=== PATIENT | female | born 1940 | race Caucasian/White ===

== ENCOUNTER 2016-11-16 12:11 | Inpatient (IN) | payer MEDICARE, OTHER ==
[~2016-11-16] VITALS: Ht 160 cm; Wt 71.3 kg
[~2016-11-16 12:11] MED LIST: AMLO-147 PO; CYCL-319 PO; IBAN150T7 PO; MELO-110 PO; NAPR-688 PO; PARO-37 PO
[2016-11-16] MEDS ORDERED: ONDANSETRON 4 MG INJ IV STA (12:16)
[2016-11-16] MEDS ORDERED: morphine 4 MG/ML VIAL IV STA (12:16)
[2016-11-16] MEDS ORDERED: SODIUM CHLORIDE 0.9% 1L BAG IV* STA (12:27)
[2016-11-16 12:33] LABS: BASOPHILS % 0.2 % (0.0-2.0); EOSINOPHILS % 0.2 % (0.0-7.0); HEMATOCRIT 41.7 % (37.0-47.0); HEMOGLOBIN 13.8 g/dl (12.0-16.0); LYMPHOCYTES # 1.6 10^3/ul (0.8-2.9); LYMPHOCYTES % 10.7 % (15.0-51.0); MEAN CORPUSCULAR HEMOGLOBIN 28.4 pg (29.0-33.0); MEAN CORPUSCULAR HGB CONC 33.2 g/dl (32.0-37.0); MEAN CORPUSCULAR VOLUME 85.5 fl (82.0-101.0); MEAN PLATELET VOLUME 7.9 fl (7.4-10.4); MONOCYTE # 0.1 10^3/ul (0.3-0.9); NEUTROPHIL # 12.7 10^3/ul (1.6-7.5); NEUTROPHILS % 87.9 % (39.0-77.0); PLATELET COUNT 207 10^3/UL (140-440); RED BLOOD COUNT 4.88 10^6/ul (4.20-5.40); UNCORRECTED WBC 14.5 10^3/ul (4.8-10.8); WHITE BLOOD COUNT 14.5 10^3/ul (4.8-10.8)
[2016-11-16 12:36] LABS: CONDITION 1
[2016-11-16 12:43] LABS: ALBUMIN 4.3 g/dl (3.3-4.9); INR 0.97; PROTIME 12.9 Sec (12.2-14.2)
[2016-11-16 12:44] LABS: CHLORIDE 105 mmol/L (97-110); PARTIAL THROMBOPLASTIN TIME 26.4 Sec (25.0-35.0); POTASSIUM 3.7 mmol/L (3.5-5.1); SODIUM 146 mmol/L (135-144)
[2016-11-16 12:46] LABS: ALKALINE PHOSPHATASE 77 IU/L (42-121); ANION GAP 17 (8-16); ASPARTATE AMINO TRANSFERASE 117 IU/L (15-46); BILIRUBIN,INDIRECT 0.9 mg/dl (0-1.1); BILIRUBIN,TOTAL 0.9 mg/dl (0.2-1.3); CARBON DIOXIDE 28 mmol/L (21-31); CREATININE 0.54 mg/dl (0.44-1.00); TOTAL PROTEIN 7.5 g/dl (6.1-8.1)
[2016-11-16 12:47] LABS: ALANINE AMINOTRANSFERASE 87 IU/L (13-69); ALBUMIN/GLOBULIN RATIO 1.34; BLOOD UREA NITROGEN 12 mg/dl (7-20); CALCIUM 8.9 mg/dl (8.4-10.2); GLUCOSE 80 mg/dl (70-220)
--- NOTE | 2016-11-16 12:56 | RADRPT ---
PROCEDURE: Abdominal Ultrasound (right upper quadrant). CLINICAL INDICATION: Abdominal pain TECHNIQUE: Multiple real-time longitudinal and transverse images of the right upper quadrant of th e abdomen were acquired utilizing a curved array transducer. Images were reviewed on a high-resoluti on PACS workstation. COMPARISON: None FINDINGS: The liver demonstrates increased echogenicity consistent with fatty infiltration. The liver is mild ly enlarged. The portal vein is patent, and flow direction is normal. No focal masses are identified . There is no evidence of intra or extrahepatic ductal dilatation. The common bile duct measures 4 .8 mm in diameter. No gallstones or gallbladder wall thickening is seen. The visualized portions of the pancreas are unremarkable with obscuration of the tail of the pancrea s. No free fluid is identified. There is no evidence of right hydronephrosis or renal calcification. The right kidney measures 10.3 cm in length. The visualized portions of the aorta and inferior vena cava are within normal limits. IMPRESSION: 1. Enlarged, fatty liver. 2. Otherwise unremarkable right upper quadrant ultrasound. RPTAT: KK .Lacho Blevins MD, MD Date Time Electronically viewed and signed by .Lacho Blevins MD, MD on 11/16/2016 12:56 .B/
[2016-11-16 13:03] LABS: TROPONIN-I < 0.012 ng/ml (0.00-0.12)
--- NOTE | 2016-11-16 13:10 | RADRPT ---
PROCEDURE: Chest Radiograph. CLINICAL INDICATION: Sepsis TECHNIQUE: Single frontal chest radiograph. COMPARISON: Chest radiograph 05/03/2016 FINDINGS: The cardiomediastinal silhouette is within normal limits. Lung volumes are decreased there is mild bibasilar atelectasis. No infiltrate or effusion is seen. The bones are intact. IMPRESSION: 1. Low lung volumes with mild bibasilar atelectasis. RPTAT: KK .Lacho Blevins MD, MD Date Time Electronically viewed and signed by .Lacho Blevins MD, on 11/16/2016 13:10 .B/
[2016-11-16] MEDS ORDERED: CEFTRIAXONE 1 GM/50 ML (PMX) 50 ML IVPB ONE (13:30)
--- NOTE | 2016-11-16 13:51 | RADRPT ---
PROCEDURE: CT Abdomen and Pelvis without contrast. CLINICAL INDICATION: Abdominal pain. TECHNIQUE: Multiple contiguous axial CT images of the abdomen and pelvis were obtained without the administration of intravenous contrast. Coronal and sagittal reconstructions were also performed. CTDIvol (mGy): 12.97; Total Exam DLP (mGy-cm): 777.95. COMPARISON: Gallbladder ultrasound 11/16/2016. FINDINGS: Limited imaging of the lower thorax demonstrates a 6 mm noncalcified subpleural nodule of the right middle lobe. Scattered basilar atelectatic changes are present. The heart is enlarged. The liver and spleen are homogeneous in density. The liver is diffusely low in attenuation compatibl e with fatty infiltration. The gallbladder is not distended. There are no visible calcified gallst ones. There is no gallbladder wall thickening or pericholecystic fluid. There is no intrahepatic b iliary duct dilatation. The common bile duct is dilated measuring approximately 10-11 mm in greates t diameter. There is no pancreatic duct dilatation. The pancreas is homogeneous in density. Mild peripancreatic inflammatory edema is observed and suggest sequelae of acute pancreatitis. The kidneys are symmetric in size. There is no hydronephrosis or abnormal perinephric inflammation. There are no nephroureteral stones. The abdominal aorta is normal in caliber. Atherosclerotic calcification is present. There is no per iaortic / retroperitoneal lymphadenopathy. The stomach and small intestines are unremarkable. Diverticulosis is present. The appendix is not visualized. There are no focal inflammatory changes of the mesentery. There is no mesenteric lymph adenopathy. There is no ascites. The bladder, uterus and adnexa are unremarkable. There is no free pelvic fluid. There is no pelvic sidewall or inguinal lymphadenopathy. Bony mineralization is decreased. The density of the L1 vertebral body is approximately 94 HU. Deg enerative changes of the lumbar spine are present. Subcutaneous soft tissues are unremarkable. IMPRESSION: Mild diffuse peripancreatic inflammatory edema suggesting sequelae of acute pancreatitis. Common bile duct dilatation. Consider further characterization with MRCP to assess for biliary ston es. Fatty infiltration of the liver. Diverticulosis. No evidence of acute diverticulitis. Small pulmonary nodule of the right middle lobe. Recommend follow up in 6-12 months. RPTAT: HLST .Yarelis Santiago MD, MD Date Time Electronically viewed and signed by .Yarelis Santiago MD, on 11/16/2016 13:51 .T/
[2016-11-16 14:12] LABS: ADD UMIC NO; URINE BILIRUBIN (Dip) NEGATIVE (NEGATIVE); URINE BLOOD (Dip) NEGATIVE (NEGATIVE); URINE COLOR LT. YELLOW (YELLOW); URINE GLUCOSE (Dip) NEGATIVE (NEGATIVE); URINE KETONES (Dip) NEGATIVE (NEGATIVE); URINE LEUKOCYTE ESTERASE (Dip) NEGATIVE (NEGATIVE); URINE NITRITE (Dip) NEGATIVE (NEGATIVE); URINE TOTAL PROTEIN (Dip) NEGATIVE (NEGATIVE); URINE UROBILINOGEN (Dip) 1.0 E.U./dL (0.1-1.0)
[2016-11-16] MEDS ORDERED: SOD CHLORIDE 0.9% 1,000 ML IV SCH (14:57)
[2016-11-16] MEDS ORDERED: ONDANSETRON 4 MG INJ IV PRN ×2 (15:00→20:30)
[2016-11-16] MEDS ORDERED: ACETAMINOPHEN 325 MG TAB PO PRN (15:00)
[2016-11-16] MEDS ORDERED: metroNIDAZOLE 500 MG/NS (PMX) 100 ML IVPB ONE (15:00)
--- NOTE | 2016-11-16 15:00 | ERA ---
ER Documentation Chief Complaint Date/Time DATE: 11/16/16 TIME: 14:59 Chief Complaint BIB RA FOR EVAL OF ABD HPI This is a 76-year-old female who presents to the emergency room after being brought in by ambulance for evaluation of abdominal pain. This patient localizes the abdominal pain to the epigastric region, states is achy pain is been present for 1 days duration. She states that she has felt nauseous and has vomited once. She denies any vomiting associated with this. She does state that she has had a fever as well. ROS All systems reviewed and are negative except as per history of present illness. Medications Home Meds Active Scripts Cyclobenzaprine Hcl* (Cyclobenzaprine Hcl*) 10 Mg Tablet, 10 MG PO TID, #20 TAB Prov:CARLITO BECKER. 05/04/16 Meloxicam* (Mobic*) 15 Mg Tablet, 15 MG PO DAILY, #30 TAB Prov:CARLITO BECKER. 05/04/16 Reported Medications Naproxen* (Naproxen*) 500 Mg Tablet, 500 MG PO BID Y for PAIN, TAB 05/04/16 Ibandronate Sodium* (Boniva*) 150 Mg Tablet, 150 MG PO ONCE, TAB 05/04/16 Paroxetine Hcl* (Paroxetine*) 20 Mg Tablet, 20 MG PO DAILY, TAB 05/04/16 Amlodipine Besylate* (Amlodipine Besylate*) 10 Mg Tablet, 10 MG PO DAILY, #30 TAB 05/04/16 Allergies Allergies: Coded Allergies: No Known Allergy (Unverified , 05/04/16) PMhx/Soc History of Surgery: Yes (appendectomy) Anesthesia Reaction: No Hx Neurological Disorder: No Hx Respiratory Disorders: No Hx Cardiac Disorders: Yes (HTN) Hx Psychiatric Problems: No Hx Miscellaneous Medical Probl: Yes (arthritis) Hx Alcohol Use: No Hx Substance Use: No Hx Tobacco Use: No Smoking Status: Never smoker Physical Exam Vitals Vital Signs Date Time Temp Pulse Resp B/P Pulse Ox O2 Delivery O2 Flow Rate FiO2 11/16/16 13:59 100.9 98 20 141/61 100 Room Air 11/16/16 12:21 101.2 95 19 139/64 97 Physical Exam INITIAL VITAL SIGNS: Reviewed by me GENERAL: The patient is well developed, appears to be in mild pain HEENT: Pupils equal, round, and reactive to light. EOMI. There is no scleral icterus. NECK: C-spine is soft and supple, there is no meningismus. There is no cervical lymphadenopathy. LUNGS: Clear to auscultation bilaterally. There are no rales, wheezes or rhonchi. HEART: Tachycardic no murmurs, clicks, rubs or gallops. ABDOMEN: Positive Smith sign, there are bowel sounds in all four quadrants. No rebound or guarding. EXTREMITIES: There is no peripheral cyanosis or edema. No focal swelling or erythema. NEUROLOGICAL: The patient moves all four extremities with 5/5 strength. Cranial nerves II - XII are intact. Normal gait. Alert and oriented SKIN: There is no apparent rash or petechiae. HEME/LYMPHATIC: There is no evidence of excessive bruising or lymphedema. PSYCHIATRIC: The patient does not appear anxious or depressed. Result Diagram: 11/16/16 1215 11/16/16 1215 Results 24 hrs Laboratory Tests Test 11/16/16 12:15 11/16/16 13:49 11/16/16 14:30 Activated Partial Thromboplast Time 26.4Sec Alanine Aminotransferase (ALT/SGPT) 87IU/L Albumin 4.3g/dl Albumin/Globulin Ratio 1.34 Alkaline Phosphatase 77IU/L Anion Gap 17 Aspartate Amino Transf (AST/SGOT) 117IU/L Basophils # 0.010^3/ul Basophils % 0.2% Blood Morphology Comment Blood Urea Nitrogen 12mg/dl Calcium Level 8.9mg/dl Carbon Dioxide Level 28mmol/L Chloride Level 105mmol/L Creatinine 0.54mg/dl Direct Bilirubin 0.00mg/dl Eosinophils # 0.010^3/ul Eosinophils % 0.2% Globulin 3.20g/dl Glucose Level 80mg/dl Hematocrit 41.7% Hemoglobin 13.8g/dl INR International Normalized Ratio 0.97 Indirect Bilirubin 0.9mg/dl Lactic Acid Level 1.8mmol/L 1.1mmol/L Lipase 9783U/L Lymphocytes # 1.610^3/ul Lymphocytes % 10.7% Mean Corpuscular Hemoglobin 28.4pg Mean Corpuscular Hemoglobin Concent 33.2g/dl Mean Corpuscular Volume 85.5fl Mean Platelet Volume 7.9fl Monocytes # 0.110^3/ul Monocytes % 1.0% Neutrophils # 12.710^3/ul Neutrophils % 87.9% Nucleated Red Blood Cells # 0.010^3/ul Nucleated Red Blood Cells % 0.0/100WBC Platelet Count 14841^3/UL Potassium Level 3.7mmol/L Prothrombin Time 12.9Sec Prothrombin Time Ratio 1.0 Red Blood Count 4.8810^6/ul Red Cell Distribution Width 14.0% Sodium Level 146mmol/L Total Bilirubin 0.9mg/dl Total Protein 7.5g/dl Troponin I < 0.012ng/ml White Blood Count 14.510^3/ul Urine Bilirubin NEGATIVE Urine Clarity CLEAR Urine Color LT. YELLOW Urine Glucose NEGATIVE% Urine Hemoglobin NEGATIVE Urine Ketones NEGATIVE Urine Leukocyte Esterase NEGATIVE Urine Nitrite NEGATIVE Urine Specific [place] 1.020 Urine Total Protein NEGATIVE Urine Urobilinogen 1.0 E.U./dL Urine pH 5.5 Current Medications Medications (Trade) Dose Ordered Sig/César Route PRN Reason Start Time Stop Time Status Last Admin Dose Admin Morphine Sulfate (morphine) 4 mg ONCE STAT IV 11/16/16 12:16 11/16/16 12:17 DC 11/16/16 12:36 Ondansetron HCl (Zofran Inj) 4 mg ONCE STAT IV 11/16/16 12:16 11/16/16 12:17 DC 11/16/16 12:36 Sodium Chloride 2020 ml 2,020 ml BOLUS OVER 2 HOURS STAT IV* 11/16/16 12:27 11/16/16 12:28 DC 11/16/16 12:36 Ceftriaxone Sodium 50 ml @ 100 mls/hr ONCE ONCE IVPB 11/16/16 13:30 11/16/16 13:59 DC 11/16/16 13:54 Metronidazole 100 ml @ 100 mls/hr ONCE ONCE IVPB 11/16/16 15:00 11/16/16 15:59 Sodium Chloride (NS) 1,000 ml @ 80 mls/hr [id number] IV 11/16/16 14:57 11/17/16 03:26 Ondansetron HCl (Zofran Inj) 4 mg ER BRIDGE PRN IV NAUSEA AND/OR VOMITING 11/16/16 15:00 11/17/16 14:59 Acetaminophen (Tylenol Tab) 650 mg ER BRIDGE PRN PO MILD PAIN/FEVER 11/16/16 15:00 11/17/16 14:59 Amlodipine Besylate (Norvasc) 10 mg DAILY PO 11/17/16 09:00 Paroxetine HCl 20 mg 20 mg DAILY PO 11/17/16 09:00 UNV Sodium Chloride (NS) 1,000 ml @ 250 mls/hr Q4H IV 11/16/16 15:07 IV Flush (NS 3 ml) 3 ml PER PROTOCOL IV 11/16/16 15:30 Acetaminophen (Tylenol Tab) 650 mg Q6H PRN PO PAIN LEVEL 1-3 OR FEVER 11/16/16 15:30 Acetaminophen (Tylenol Supp) 650 mg Q6H PRN [place] PAIN LEVEL 1-3 OR FEVER 11/16/16 15:30 Acetaminophen/ Hydrocodone Bitart ([place] (5/325)) 1 tab Q6H PRN PO MODERATE PAIN LEVEL 4-6 11/16/16 15:30 Acetaminophen/ Hydrocodone Bitart ([place] (5/325)) 2 tab Q6H PRN PO SEVERE PAIN LEVEL 7-10 11/16/16 15:30 Morphine Sulfate (morphine) 2 mg Q4H PRN IV SEVERE PAIN LEVEL 7-10 11/16/16 15:30 Hydromorphone HCl (Dilaudid) 0.5 mg Q4H PRN IV SEVERE PAIN LEVEL 7-10 11/16/16 15:30 Docusate Sodium (Colace) 100 mg Q12H PRN PO CONSTIPATION 11/16/16 15:30 Magnesium Hydroxide (Milk Of Mag) 30 ml DAILY PRN PO CONSTIPATION 11/16/16 15:30 Bisacodyl (Dulcolax Supp) 10 mg DAILY PRN [place] CONSTIPATION 11/16/16 15:30 Pantoprazole (Protonix Iv) 40 mg DAILY@06 IV 11/17/16 06:00 Procedures/MDM EKG: Rate/Rhythm: [Normal Sinus Rhythm] QRS, ST, T-waves: [No changes consistent w/ acute ischemia] Impression: [No evidence of ischemia or arrhythmia] Ultrasound gallbladder: 1. Enlarged, fatty liver. 2. Otherwise unremarkable right upper quadrant ultrasound. Chest X-ray 1V Interpreted by me: Soft Tissue: No acute abnormalities Bones: No acute abnormalities Mediastinum/Cardiac Silhouette/Lungs: [No acute abnormalities] CT abdomen pelvis without: Mild diffuse peripancreatic inflammatory edema suggesting sequelae of acute pancreatitis. Common bile duct dilatation. Consider further characterization with MRCP to assess for biliary stones. Fatty infiltration of the liver. Diverticulosis. No evidence of acute diverticulitis. Small pulmonary nodule of the right middle lobe. Recommend follow up in 6-12 months. This is a 76-year-old female presents to the emergency room for evaluation of abdominal pain. She did have a positive Smith sign on my examination. She was also febrile and tachycardic. A septic workup was initiated on this patient. She was found to have acute pancreatitis, no signs of cholecystitis. She was given 30 cc/kg of IV normal saline, and was given Rocephin and Flagyl here in the emergency room. This patient will be admitted for acute pancreatitis with sepsis. [facility]. No need for pressors as her mean arterial pressures greater than 65. Critical Care: Excluding all billable procedures Time: 38 minutes Treatments/Evaluations: Close monitoring and treatment of unstable vital signs, cardiorespiratory, and neurologic status, while maintaining tight balance of fluid, respiratory, and cardiac interventions. Departure Diagnosis: Primary Impression: Sepsis Additional Impression: Acute pancreatitis Condition: CHANDLER Jasso DO Nov 16, 2016 15:00
[2016-11-16] MEDS ORDERED: NACL 0.9% 3 ML SYG IV SCH (15:30)
[2016-11-16] MEDS ORDERED: HYDROCODONE/APAP (5/325) TAB PO PRN (15:30)
[2016-11-16] MEDS ORDERED: DOCUSATE SODIUM 100 MG CAP PO PRN (15:30)
[2016-11-16] MEDS ORDERED: MAGNESIUM HYDROXIDE 30ML CUP PO PRN (15:30)
[2016-11-16] MEDS ORDERED: ACETAMINOPHEN 650 MG SUPP PR PRN (15:30)
[2016-11-16] MEDS ORDERED: HYDROmorphONE 1 MG/ML SYG IV PRN (15:30)
[2016-11-16] MEDS ORDERED: BISACODYL 10 MG SUPP PR PRN (15:30)
[2016-11-16] MEDS: morphine 2 MG INJ IV PRN (16:11)
[2016-11-16 16:36] VITALS: TEMP 100.4
--- NOTE | 2016-11-16 16:57 | HP ---
DATE OF ADMISSION: 11/16/2016 CHIEF COMPLAINT: Abdominal pain. HISTORY OF PRESENT ILLNESS: This is a 76-year-old female with past medical history of osteoarthriti s, as well as sciatica and hypertension, who did come to [facility] due to reports of abdominal pain for 1 day duration. According to the patient, she was in her normal state of hea lth until this morning when she started to have pain roughly after 10:30 in the morning. She did re port having some associated yellowish emesis x3 at home and 2 reports of emesis in the ER and nonblo linnea. She also was noted with temperature as high as 101.2 that did downward trend to 100.9 without any use of antipyretics. She did have blood work drawn that did show her to have some leukocytosis with a white count at 14.5, likely reactive to pancreatitis. Of note, [place] 9783 with liver enzymes of AST at 117 and ALT at 87. She did have further radiographic imagi ng of her gallbladder with ultrasound that did show enlarged fatty liver, but otherwise unremarkabl e right carotid ultrasound. Her CT scan of her abdomen and pelvis, however, did show mild diffuse p eripancreatic inflammatory edema suggestive of pancreatitis as well as common bile duct dilation, al though again in the scan. there were no real identified gallstones seen. There was, however, common bile duct dilated measuring 10 to 11 mm in greatest diameter. Currently, the patient reports havin g epigastric pain. She did initially report that she had some radiation to her chest. However, thi s has resolved at this time. She denies any other sick contacts or any episodes of fever prior to t his admission. We will evaluate her for the aforementioned issues. MEDICAL AND SURGICAL HISTORY: 1. Arthritis. 2. Hypertension. 3. Appendectomy. SOCIAL HISTORY: Patient denies any cigarette smoking, alcohol consumption or illicit drug use. FAMILY HISTORY: Noncontributory. ALLERGIES: NO KNOWN ALLERGIES. REVIEW OF SYSTEMS: A 12-point review of systems obtained and entirely negative except that mentione d in history of present illness. HOME MEDICATIONS 1. Cyclobenzaprine 10 mg p.o. t.i.d. 2. Amlodipine 10 mg p.o. daily. 3. Meloxicam 15 mg p.o. daily. 4. Naprosyn 500 mg p.o. b.i.d. 5. Fluoxetine 20 mg p.o. daily. 6. Boniva 150 mg p.o. PHYSICAL EXAMINATION: VITAL SIGNS: Temperature is 100.9, pulse is 98, respiratory rate 20, blood pressure 141/61, pulse o ximetry 100% on room air. GENERAL: This is a 76-year-old female, appears stated age with slight discomfort secondary to abdom inal pain. EYES: Pupils equal, round and reactive to light. Anicteric sclerae. NECK: Supple, nontender, no JVD. CARDIOVASCULAR: S1, S2 auscultated, regular rate. PULMONARY: Clear to auscultation bilaterally, no wheezes or rhonchi. ABDOMEN: Tender upon palpation, more on upper abdominal quadrants. Bowel sounds active. EXTREMITIES: No pedal edema in bilateral extremities. SKIN: Warm, dry, and intact. NEUROLOGIC: Alert, oriented x3. LABORATORIES:: Sodium 146, potassium 2.7, BUN is 12, creatinine 0.54. AST at 117 and ALT at 87, a nd lipase at 97____. WBC 14.5, hemoglobin 13.8, hematocrit is 41.7 and platelets are 207. IMAGING: Gallbladder ultrasound done on 11/16/2016 showed enlarged fatty liver, but otherwise unrem arkable right upper quadrant abdominal ultrasound. DIAGNOSTICS: Chest x-ray done on 11/16/2016 showed low lung volumes with mild bibasilar atelectasis . 1. Abdominal pelvic CT scan done 11/16/2016 did show mild diffuse peripancreatic inflammatory edema suggestive of sequelae of acute pancreatitis. It also showed common bile duct dilation with fatty liver and diverticulosis but no evidence of diverticulitis, as well as a small pulmonary nodule in t he right middle lung lobe and common bile duct measuring approximately 10 to [address] IMPRESSION AND PLAN: 1. Pancreatitis. The patient noted with elevated liver enzymes. Suspect etiology for possible sto ne in CBD. Will get MRCP for further delineation. 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 Wi ll start on IV hydration and analgesics. Will withhold from antibiotics for now. 2. CBD dilation. Etiology unclear at this time. Patient with no noted gallstones on CT scan imagi ng, as well as ultrasound imaging. We will get MRCP for further delineation. 3. History of essential hypertension. We will continue patient on her amlodipine. 4. Diverticulosis without diverticulitis. Patient to be given IV hydration for now. Will keep n.p .o. 5. History of arthritis. We will provide with analgesics as needed. 6. Leukocytosis, likely secondary to #1. Fever downward trending. We will provide with antipyreti cs as needed. 7. Deep venous thrombosis prophylaxis: SCDs. 8. GI prophylaxis: PPI. ADMISSION PROCESS TIME: 40 minutes. Discussed plan of care with Dr. Ashford. Dictated By: NEO FUENTES BUILDING PRINCIPAL for CHANDLER BENSON DO RR/NTS Conf#: [id number] DID#: [id number]
[2016-11-16 18:05] VITALS: BP 146/64; PULSE 90; RESP 16; Ht 160 cm; Wt 71.3 kg
[2016-11-16] MEDS: SOD CHLORIDE 0.9% 1,000 ML IV SCH ×3 (18:14→23:44)
--- NOTE | 2016-11-16 20:07 | CONS ---
Date/Time of Note Date/Time of Note DATE: 11/16/16 TIME: 20:05 Assessment/Plan Assessment/Plan Additional Assessment/Plan Abdominal pain/nausea/vomiting, evaluate for choledocholithiasis versus acute cholelithiasis * MRCP * Check triglycerides * Trend lipase, amylase, direct and total bilirubin * IVF hydration * Pain management and nausea control * N.p.o. * Consider ERCP if clinically indicated, patient and family advised of risks, benefits, and alternatives to procedure and are agreeable to proceed * May need surgery consult * Further recommendations depend on clinical course Fatty liver * Recommend weight loss Transaminitis * Likely secondary to above * Acute hepatitis panel to rule out other etiology * Monitor LFTs Consultation Date/Type/Reason Admit Date/Time Nov 16, 2016 at 14:57 Hx of Present Illness 76-year-old female with PMH of arthritis and hypertension presented to the ED with complaints of chest pain that radiated to epigastrium, nausea, and nonbloody bilious vomiting 1 day. Patient states symptoms presented acutely and were unrelenting. Patient denies diarrhea, melena stools, fever, chills, shortness of breath, syncope, cholecystectomy, travel outside the [place], new medications, and sick contacts. Patient denies previous episode. Presently CT notes common bile duct is dilated measuring approximately 10-11 mm in greatest diameter and fatty liver. Past Medical History Medical History: hypertension, other (Arthritis) Past Surgical History Past Surgical Hx: appendectomy Family History Significant Family History: no pertinent family hx Social History Alcohol Use: occasionally Smoking Status: Never smoker Exam/Review of Systems Vital Signs Vitals Vital Signs Date Time Temp Pulse Resp B/P Pulse Ox O2 Delivery O2 Flow Rate FiO2 11/16/16 18:05 98.3 90 16 146/64 96 Room Air Exam Constitutional: alert, oriented, well developed Psych: nl mood/affect Head: atraumatic Eyes: EOMI ENMT: mucosa pink and moist Respiratory: normal air movement Cardiovascular: regular rate and rhythm Gastrointestinal: soft, tender (Epigastric, right upper quadrant) 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 intact Results Result Diagram: 11/16/16 1215 11/16/16 1215 Results 24 hrs Laboratory Tests Test 11/16/16 12:15 11/16/16 13:49 11/16/16 14:30 11/16/16 18:15 Activated Partial Thromboplast Time 26.4 Alanine Aminotransferase (ALT/SGPT) 87 H Albumin 4.3 Albumin/Globulin Ratio 1.34 Alkaline Phosphatase 77 Anion Gap 17 H Aspartate Amino Transf (AST/SGOT) 117 H Basophils # 0.0 Basophils % 0.2 Blood Morphology Comment Blood Urea Nitrogen 12 Calcium Level 8.9 Carbon Dioxide Level 28 Chloride Level 105 Creatinine 0.54 Direct Bilirubin 0.00 Eosinophils # 0.0 Eosinophils % 0.2 Globulin 3.20 Glucose Level 80 Hematocrit 41.7 Hemoglobin 13.8 INR International Normalized Ratio 0.97 Indirect Bilirubin 0.9 Lactic Acid Level 1.8 1.1 1.8 Lipase 9783 H Lymphocytes # 1.6 Lymphocytes % 10.7 L Mean Corpuscular Hemoglobin 28.4 L Mean Corpuscular Hemoglobin Concent 33.2 Mean Corpuscular Volume 85.5 Mean Platelet Volume 7.9 Monocytes # 0.1 L Monocytes % 1.0 Neutrophils # 12.7 H Neutrophils % 87.9 H Nucleated Red Blood Cells # 0.0 Nucleated Red Blood Cells % 0.0 Platelet Count 207 # Potassium Level 3.7 Prothrombin Time 12.9 Prothrombin Time Ratio 1.0 Red Blood Count 4.88 Red Cell Distribution Width 14.0 Sodium Level 146 H Total Bilirubin 0.9 Total Protein 7.5 Troponin I < 0.012 White Blood Count 14.5 #H Urine Bilirubin NEGATIVE Urine Clarity CLEAR Urine Color LT. YELLOW Urine Glucose NEGATIVE Urine Hemoglobin NEGATIVE Urine Ketones NEGATIVE Urine Leukocyte Esterase NEGATIVE Urine Nitrite NEGATIVE Urine Specific [place] 1.020 Urine Total Protein NEGATIVE Urine Urobilinogen 1.0 E.U./dL Urine pH 5.5 Medications Medications Current Medications Sodium Chloride (NS) 1,000 ml @ 80 mls/hr [id number] IV ; Start 11/16/16 at 14:57; Stop 11/17/16 at 03:26 Amlodipine Besylate (Norvasc) 10 mg DAILY PO ; Start 11/17/16 at 09:00 Paroxetine HCl 20 mg 20 mg DAILY PO ; Start 11/17/16 at 09:00 Sodium Chloride (NS) 1,000 ml @ 250 mls/hr Q4H IV Last administered on t 18:14; Admin Dose 250 MLS/HR; Start 11/16/16 at 15:07 Acetaminophen (Tylenol Tab) 650 mg Q6H PRN PO PAIN LEVEL 1-3 OR FEVER; Start at 15:30 Acetaminophen (Tylenol Supp) 650 mg Q6H PRN [place] PAIN LEVEL 1-3 OR FEVER; Start 11/16/16 at 15:30 Acetaminophen/ Hydrocodone Bitart ([place] (5/325)) 1 tab Q6H PRN PO MODERATE PAIN LEVEL 4-6; Start 11/16/16 at 15:30 Acetaminophen/ Hydrocodone Bitart ([place] (5/325)) 2 tab Q6H PRN PO SEVERE PAIN LEVEL 7-10; Start 11/16/16 at 15:30 Morphine Sulfate (morphine) 2 mg Q4H PRN IV SEVERE PAIN LEVEL 7-10 Last administered on 11/16/16t 16:11; Admin Dose 2 MG; Start 11/16/16 at 15:30 Hydromorphone HCl (Dilaudid) 0.5 mg Q4H PRN IV SEVERE PAIN LEVEL 7-10; Start at 15:30 Docusate Sodium (Colace) 100 mg Q12H PRN PO CONSTIPATION; Start 11/16/16 at 15: 30 Magnesium Hydroxide (Milk Of Mag) 30 ml DAILY PRN PO CONSTIPATION; Start at 15:30 Bisacodyl (Dulcolax Supp) 10 mg DAILY PRN [place] CONSTIPATION; Start 11/16/16 at 15: 30 Pantoprazole (Protonix Iv) 40 mg DAILY@06 IV ; Start 11/17/16 at 06:00 JEROME MARTINES MD Nov 16, 2016 20:07
[2016-11-16 20:33] VITALS: BP 129/60; RESP 20
--- NOTE | 2016-11-16 23:11 | RADRPT ---
PROCEDURE: MRCP. CLINICAL INDICATION: Biliary dilatation. Abdominal pain and vomiting. TECHNIQUE: MRCP was performed. The following sequences were obtained: Three plane gradient echo localizers, coronal gradient echo images, breath hold axial T2-weighted fat saturation images, clyde nal T2-weighted images, axial 3-D LAVA images, axial T2-weighted breath hold fast spin echo images, and 3-D coronal rotating MIP images of the biliary tree. COMPARISON: CT scan of the abdomen and pelvis and right upper quadrant abdomen ultrasound done ear [place] the same day. FINDINGS: The liver is mildly enlarged. There is no focal hepatic lesion. Hepatic signal intensity is consistent with fatty metamorphosis. The spleen is normal in size and homogeneous in signal intensity. There are no gallstones in the gallbladder. The common bile duct is dilated with a diameter of approximately 13 mm. No obstructing lesion is se en. There are no common bile duct stones. The intrahepatic bile ducts are mildly dilated. There is abrupt tapering of the distal common bile duct. In addition, the pancreatic duct is borderline dila anna measuring 3 mm. The pancreas demonstrates no obvious mass. The kidneys are grossly normal. The abdominal aorta is not dilated. IMPRESSION: 1. Mild hepatomegaly. 2. Fatty metamorphosis of the liver. 3. Dilated common bile duct with abrupt tapering distally. This may indicate a stricture which cou ld be benign or malignant. Correlation with ERCP is advised. 4. Borderline dilated pancreatic duct. 5. Otherwise unremarkable study. RPTAT: QQ .Matteo Guevara MD, MD Date Time Electronically viewed and signed by .Matteo Guevara MD, on 11/16/2016 23:11 .R/
[2016-11-17] VITALS (22 sets, daily range): BP systolic 132–177; BP diastolic 60–85; PULSE 63–86; RESP 14–26
[2016-11-17] MEDS: SOD CHLORIDE 0.9% 1,000 ML IV SCH ×4 (03:43→19:07)
[2016-11-17] MEDS: PANTOPRAZOLE 40 MG INJ IV SCH (05:12)
[2016-11-17 06:48] LABS: AMYLASE 780 U/L (11-123)
[2016-11-17] MEDS ORDERED: ONDANSETRON 4 MG INJ ONE (07:00)
[2016-11-17 07:43] LABS: ALBUMIN 3.2 g/dl (3.3-4.9)
[2016-11-17 07:44] LABS: POTASSIUM 3.8 mmol/L (3.5-5.1)
[2016-11-17 07:46] LABS: ALBUMIN/GLOBULIN RATIO 1.14; BILIRUBIN,INDIRECT 0.9 mg/dl (0-1.1); BILIRUBIN,TOTAL 0.9 mg/dl (0.2-1.3); CREATININE 0.48 mg/dl (0.44-1.00)
[2016-11-17 07:47] LABS: CALCIUM 7.8 mg/dl (8.4-10.2); CHOL/HDL RATIO 3.1 RATIO; MAGNESIUM 1.8 mg/dl (1.7-2.5); PHOSPHORUS 3.9 mg/dl (2.5-4.9)
[2016-11-17 07:58] LABS: T3 UPTAKE 39.2 % (23.5-40.5)
[2016-11-17 08:12] LABS: THYROID STIMULATING HORMONE 0.316 MIU/L (0.465-4.680)
[2016-11-17 09:00] LABS: BASOPHILS % 0.3 % (0.0-2.0); EOSINOPHILS % 0.1 % (0.0-7.0); HEMATOCRIT 34.5 % (37.0-47.0); HEMOGLOBIN 11.5 g/dl (12.0-16.0); LYMPHOCYTES # 1.8 10^3/ul (0.8-2.9); LYMPHOCYTES % 14.8 % (15.0-51.0); MEAN CORPUSCULAR HEMOGLOBIN 28.6 pg (29.0-33.0); MEAN CORPUSCULAR HGB CONC 33.4 g/dl (32.0-37.0); MEAN CORPUSCULAR VOLUME 85.8 fl (82.0-101.0); MEAN PLATELET VOLUME 8.9 fl (7.4-10.4); MONOCYTE # 0.7 10^3/ul (0.3-0.9); MONOCYTES % 5.8 % (0.0-11.0); NEUTROPHIL # 9.5 10^3/ul (1.6-7.5); PLATELET COUNT 167 10^3/UL (140-440); RED BLOOD COUNT 4.02 10^6/ul (4.20-5.40); RED CELL DISTRIBUTION WIDTH 14.3 % (11.5-14.5); UNCORRECTED WBC 12.1 10^3/ul (4.8-10.8); WHITE BLOOD COUNT 12.1 10^3/ul (4.8-10.8)
[2016-11-17 09:14] LABS: CONDITION 1
[2016-11-17] MEDS ORDERED: INDOMETHACIN 50 MG SUPP PR ONE (12:00)
[2016-11-17] MEDS: ONDANSETRON 4 MG INJ IV PRN ×2 (12:27→18:03)
--- NOTE | 2016-11-17 15:20 | PN ---
Date/Time of Note Date/Time of Note DATE: 11/17/16 TIME: 15:17 Assessment/Plan VTE Prophylaxis VTE Prophylaxis Intervention: SCD's Lines/Catheters [facility]from [facility] Peripheral IV Assessment/Plan Chief Complaint/Hosp Course Assessment and plan 1. Pancreatitis. The patient noted with elevated liver enzymes. Continue on IV hydration and analgesics. Improving at present. 2. CBD dilation. Patient did have MRCP that did show: Dilated common bile duct with abrupt tapering distally. This may indicate a stricture which could be benign or malignant Embedded Software Test Engineer following. Tentative plan for ERCP 3. History of essential hypertension. We will continue patient on her amlodipine. 4. Diverticulosis without diverticulitis. Patient to be given IV hydration for now. Will keep n.p.o. 5. History of arthritis. We will provide with analgesics as needed. 6. Leukocytosis, likely secondary to #1. Fever downward trending. We will provide with antipyretics as needed. 7. Deep venous thrombosis prophylaxis: SCDs. 8. GI prophylaxis: PPI. Disposition and plan: Patient noted with possible stricture in CBD. Plan for ERCP. Follow up with clinic specialist recommendations. Monitor liver enzymes. Discussed but of care with Problems: Subjective 24 Hr Interval Summary Free Text/Dictation No acute distress noted. Reports less abdominal pain at this time Exam/Review of Systems Vital Signs Vitals Vital Signs Date Time Temp Pulse Resp B/P Pulse Ox O2 Delivery O2 Flow Rate FiO2 11/17/16 07:33 98.0 73 18 138/60 96 11/16/16 18:05 Room Air Intake and Output 11/16/16 11/16/16 11/17/16 15:00 23:00 07:00 Intake Total 2250 ml Balance 2250 ml Exam General: No acute signs or symptoms of distress Eyes: pupils equal round, Anicteric sclera Neck: Supple nontender, no JVD Cardiac: S1, S2 auscultated, regular rhythm and rate Pulmonary: No coarse rhonchi or breathing auscultated GI: Abdomen soft nontender nondistended, bowel sounds active Extremities: No edema bilateral lower extremities Skin: Clean dry and intact Neurologic: Alert to person place and time and situation Results Result Diagram: 11/17/16 0436 11/17/16 0436 Results 24 hrs Laboratory Tests Test 11/16/16 18:15 11/17/16 04:36 Lactic Acid Level 1.8 Alanine Aminotransferase (ALT/SGPT) 78 H Albumin 3.2 #L Albumin/Globulin Ratio 1.14 Alkaline Phosphatase 50 Amylase Level 780 H Anion Gap 17 H Aspartate Amino Transf (AST/SGOT) 56 H Basophils # 0.0 Basophils % 0.3 Blood Morphology Comment Blood Urea Nitrogen 11 Calcium Level 7.8 L Carbon Dioxide Level 25 Chloride Level 108 Cholesterol Level 131 Cholesterol/HDL Ratio 3.1 Creatinine 0.48 Direct Bilirubin 0.00 Eosinophils # 0.0 Eosinophils % 0.1 Free Thyroxine Index 2.55 Globulin 2.80 Glucose Level 88 HDL Cholesterol 41 Hematocrit 34.5 L Hemoglobin 11.5 L Hemoglobin A1c 5.7 Hepatitis A Antibody Total POSITIVE H Hepatitis B Surface Antigen NEGATIVE Hepatitis C Antibody NEGATIVE Indirect Bilirubin 0.9 LDL Cholesterol, Calculated 82 Lipase 2275 H Lymphocytes # 1.8 Lymphocytes % 14.8 L Magnesium Level 1.8 Mean Corpuscular Hemoglobin 28.6 L Mean Corpuscular Hemoglobin Concent 33.4 Mean Corpuscular Volume 85.8 Mean Platelet Volume 8.9 Monocytes # 0.7 Monocytes % 5.8 Neutrophils # 9.5 H Neutrophils % 79.0 H Nucleated Red Blood Cells # 0.0 Nucleated Red Blood Cells % 0.0 Phosphorus Level 3.9 Platelet Count 167 Potassium Level 3.8 Red Blood Count 4.02 L Red Cell Distribution Width 14.3 Sodium Level 146 H Thyroid Stimulating Hormone (TSH) 0.316 L Thyroxine (T4) 6.5 Total Bilirubin 0.9 Total Protein 6.0 #L Triglycerides Level 40 Triiodothyronine (T3) Uptake 39.2 White Blood Count 12.1 H Medications Medications Current Medications Amlodipine Besylate (Norvasc) 10 mg DAILY PO ; Start 11/17/16 at 09:00 Paroxetine HCl 20 mg 20 mg DAILY PO ; Start 11/17/16 at 09:00 Sodium Chloride (NS) 1,000 ml @ 250 mls/hr Q4H IV Last administered on t 11:48; Admin Dose 250 MLS/HR; Start 11/16/16 at 15:07 Acetaminophen (Tylenol Tab) 650 mg Q6H PRN PO PAIN LEVEL 1-3 OR FEVER; Start at 15:30 Acetaminophen (Tylenol Supp) 650 mg Q6H PRN [place] PAIN LEVEL 1-3 OR FEVER; Start 11/16/16 at 15:30 Acetaminophen/ Hydrocodone Bitart ([place] (5/325)) 1 tab Q6H PRN PO MODERATE PAIN LEVEL 4-6; Start 11/16/16 at 15:30 Acetaminophen/ Hydrocodone Bitart ([place] (5/325)) 2 tab Q6H PRN PO SEVERE PAIN LEVEL 7-10; Start 11/16/16 at 15:30 Morphine Sulfate (morphine) 2 mg Q4H PRN IV SEVERE PAIN LEVEL 7-10 Last administered on 11/16/16 16:11; Admin Dose 2 MG; Start 11/16/16 at 15:30 Hydromorphone HCl (Dilaudid) 0.5 mg Q4H PRN IV SEVERE PAIN LEVEL 7-10; Start at 15:30 Docusate Sodium (Colace) 100 mg Q12H PRN PO CONSTIPATION; Start 11/16/16 at 15: 30 Magnesium Hydroxide (Milk Of Mag) 30 ml DAILY PRN PO CONSTIPATION; Start at 15:30 Bisacodyl (Dulcolax Supp) 10 mg DAILY PRN [place] CONSTIPATION; Start 11/16/16 at 15: 30 Pantoprazole (Protonix Iv) 40 mg DAILY@06 IV Last administered on 11/17/16 05: 12; Admin Dose 40 MG; Start 11/17/16 at 06:00 Ondansetron HCl (Zofran Inj) 4 mg Q4H PRN IV NAUSEA AND/OR VOMITING Last administered on 11/17/16 12:27; Admin Dose 4 MG; Start 11/17/16 at 12:30 NEO FUENTES Nov 17, 2016 15:20 NEO FUENTES Nov 17, 2016 15:20
[2016-11-17] MEDS ORDERED: IOHEXOL 300MG/ML 30 ML BTL ONE (16:06)
[2016-11-17] MEDS ORDERED: METOCLOPRAMIDE 10 MG INJ ONE (16:34)
[2016-11-17] MEDS ORDERED: SUCCINYLCHOLINE CHLORIDE 100 MG/5 ML SYG IV ONE (16:38)
[2016-11-17] MEDS ORDERED: PROPOFOL 20 ML ONE (16:38)
[2016-11-17] MEDS ORDERED: FENTAnyl 50 MCG/ML VIAL ONE (16:50)
[2016-11-17] MEDS: morphine 2 MG INJ IV PRN (19:51)
[2016-11-17] MEDS: PAROXETINE 20 MG TAB PO SCH (20:35)
[2016-11-17] MEDS: AMLODIPINE 10 MG TAB PO SCH (20:35)
--- NOTE | 2016-11-17 21:36 | RADRPT ---
PROCEDURE: Intraoperative imaging for ERCP with fluoroscopy. CLINICAL INDICATION: Right upper quadrant pain. Intraoperative. TECHNIQUE: 6 images of the right upper quadrant of the abdomen were obtained in the operating room with an image intensifier. No radiologist was in attendance. 318.4 seconds of fluoroscopy time wa s used. COMPARISON: MRCP dated 11/16/2016 FINDINGS: Images demonstrate the endoscope in position. The common bile duct is diffusely dilated. The pancr eatic duct is also mildly dilated. There is strictures of the distal common bile duct and pancreati c duct which is suspicious for neoplasm. The final image demonstrates a stent in the common bile du ct. IMPRESSION: 1. ERCP as described above. RPTAT: QQ .Matteo Guevara MD, MD Date Time Electronically viewed and signed by .Matteo Guevara MD, on 11/17/2016 21:36 .R/
[2016-11-18 00:21] VITALS: BP 165/74; RESP 19
[2016-11-18] MEDS: ONDANSETRON 4 MG INJ IV PRN ×3 (02:19→16:13)
[2016-11-18] MEDS: PANTOPRAZOLE 40 MG INJ IV SCH (06:05)
[2016-11-18] MEDS: SOD CHLORIDE 0.9% 1,000 ML IV SCH ×3 (06:08→22:32)
[2016-11-18 08:39] VITALS: BP 149/70; RESP 18
[2016-11-18] MEDS: PAROXETINE 20 MG TAB PO SCH (09:16)
[2016-11-18] MEDS: AMLODIPINE 10 MG TAB PO SCH (09:17)
[2016-11-18] MEDS: HYDROCODONE/APAP (5/325) TAB PO PRN ×2 (09:31→19:12)
[2016-11-18 14:13] LABS: BASOPHILS % 0.2 % (0.0-2.0); HEMATOCRIT 38.5 % (37.0-47.0); HEMOGLOBIN 12.9 g/dl (12.0-16.0); LYMPHOCYTES # 1.7 10^3/ul (0.8-2.9); LYMPHOCYTES % 12.6 % (15.0-51.0); MEAN CORPUSCULAR HEMOGLOBIN 28.5 pg (29.0-33.0); MEAN CORPUSCULAR HGB CONC 33.4 g/dl (32.0-37.0); MEAN CORPUSCULAR VOLUME 85.3 fl (82.0-101.0); MEAN PLATELET VOLUME 7.9 fl (7.4-10.4); MONOCYTE # 0.4 10^3/ul (0.3-0.9); MONOCYTES % 3.2 % (0.0-11.0); NEUTROPHIL # 11.3 10^3/ul (1.6-7.5); PLATELET COUNT 209 10^3/UL (140-440); RED BLOOD COUNT 4.52 10^6/ul (4.20-5.40); RED CELL DISTRIBUTION WIDTH 14.3 % (11.5-14.5); UNCORRECTED WBC 13.4 10^3/ul (4.8-10.8); WHITE BLOOD COUNT 13.4 10^3/ul (4.8-10.8)
[2016-11-18 14:14] LABS: CONDITION 1
[2016-11-18 14:28] LABS: ALBUMIN 3.7 g/dl (3.3-4.9)
[2016-11-18 14:31] LABS: ALBUMIN/GLOBULIN RATIO 1.15; BILIRUBIN,INDIRECT 0.7 mg/dl (0-1.1); BILIRUBIN,TOTAL 0.7 mg/dl (0.2-1.3); CREATININE 0.46 mg/dl (0.44-1.00); TOTAL PROTEIN 6.9 g/dl (6.1-8.1)
[2016-11-18 14:32] LABS: CALCIUM 8.5 mg/dl (8.4-10.2)
--- NOTE | 2016-11-18 14:48 | PN ---
Date/Time of Note Date/Time of Note DATE: 11/18/16 TIME: 14:43 Assessment/Plan VTE Prophylaxis VTE Prophylaxis Intervention: SCD's Lines/Catheters IV Catheter Type (from [facility]): Peripheral IV Assessment/Plan Chief Complaint/Hosp Course Assessment and plan 1. Pancreatitis. Lipase levels downward trend. Continue IV hydration. We'll advance diet as tolerated 2. CBD dilation. Patient did have MRCP that did show: Dilated common bile duct with abrupt tapering distally. This may indicate a stricture which could be benign or malignant Demolition Expert following. Patient status post ERCP. Follow-up on pathology for brushings of distal CBD 3. History of essential hypertension. We will continue patient on her amlodipine. 4. Diverticulosis without diverticulitis. Patient to be given IV hydration for now. At that site as tolerated 5. History of arthritis. We will provide with analgesics as needed. 6. Leukocytosis, likely secondary to #1. Off antibiotics at this time. Likely inflammatory process. Remains afebrile at present. We'll monitor for now 7. Elevated CA 19-9. Follow up on brushings of distal CBD. Deep venous thrombosis prophylaxis: SCDs. GI prophylaxis: PPI. Disposition and plan: Patient status post ERCP. She denies any abdominal pain at this time. She still reports nausea and unable to tolerate oral intake well. Continue with antiemetics. Follow-up with rotary driller recommendations. Discharge when medically stable and cleared by consultants. Discussed but of care with Problems: Subjective 24 Hr Interval Summary Free Text/Dictation patient resting at this time. denies any abdominal pain, but states she has moderate nausea and unable to tolerate 50% of food intake Exam/Review of Systems Vital Signs Vitals Vital Signs Date Time Temp Pulse Resp B/P Pulse Ox O2 Delivery O2 Flow Rate FiO2 11/18/16 08:39 97.4 80 18 149/70 87 11/18/16 08:30 Nasal Cannula 2.0 Intake and Output 11/17/16 11/17/16 11/18/16 15:00 23:00 07:00 Intake Total 1000 ml 800 ml 1200 ml Output Total 1200 ml Balance 1000 ml -400 ml 1200 ml Exam General: minimal distress, reporting nausea Eyes: pupils equal round, Anicteric sclera Neck: Supple nontender, no JVD Cardiac: S1, S2 auscultated, regular rhythm and rate Pulmonary: No coarse rhonchi or breathing auscultated GI: Abdomen soft nontender nondistended, bowel sounds active Extremities: No edema bilateral lower extremities Skin: Clean dry and intact Neurologic: Alert to person place and time and situation Results Result Diagram: 11/18/16 1355 11/18/16 1355 Results 24 hrs Laboratory Tests Test 11/18/16 04:44 11/18/16 13:55 CA 19-9 Antigen 80.2 H Alanine Aminotransferase (ALT/SGPT) 81 H Albumin 3.7 Albumin/Globulin Ratio 1.15 Alkaline Phosphatase 66 Anion Gap 18 H Aspartate Amino Transf (AST/SGOT) 43 Basophils # 0.0 Basophils % 0.2 Blood Morphology Comment Blood Urea Nitrogen 8 Calcium Level 8.5 Carbon Dioxide Level 24 Chloride Level 105 Creatinine 0.46 Direct Bilirubin 0.00 Eosinophils # 0.0 Eosinophils % 0.0 Globulin 3.20 Glucose Level 111 Hematocrit 38.5 Hemoglobin 12.9 Indirect Bilirubin 0.7 Lymphocytes # 1.7 Lymphocytes % 12.6 L Mean Corpuscular Hemoglobin 28.5 L Mean Corpuscular Hemoglobin Concent 33.4 Mean Corpuscular Volume 85.3 Mean Platelet Volume 7.9 Monocytes # 0.4 Monocytes % 3.2 Neutrophils # 11.3 H Neutrophils % 84.0 H Nucleated Red Blood Cells # 0.0 Nucleated Red Blood Cells % 0.0 Platelet Count 209 # Potassium Level 4.0 Red Blood Count 4.52 Red Cell Distribution Width 14.3 Sodium Level 143 Total Bilirubin 0.7 Total Protein 6.9 White Blood Count 13.4 H Medications Medications Current Medications Amlodipine Besylate (Norvasc) 10 mg DAILY PO Last administered on 11/18/16 09: 17; Admin Dose 10 MG; Start 11/17/16 at 09:00 Paroxetine HCl 20 mg 20 mg DAILY PO Last administered on 11/18/16 09:16; Admin Dose 20 MG; Start 11/17/16 at 09:00 Sodium Chloride (NS) 1,000 ml @ 75 mls/hr [id number] IV Last administered on 19:07; Admin Dose 75 MLS/HR; Start 11/16/16 at 15:07 Acetaminophen (Tylenol Tab) 650 mg Q6H PRN PO PAIN LEVEL 1-3 OR FEVER; Start at 15:30 Acetaminophen (Tylenol Supp) 650 mg Q6H PRN [place] PAIN LEVEL 1-3 OR FEVER; Start 11/16/16 at 15:30 Acetaminophen/ Hydrocodone Bitart ([place] (5/325)) 1 tab Q6H PRN PO MODERATE PAIN LEVEL 4-6 Last administered on 11/18/16 09:31; Admin Dose 1 TAB; Start 11/16 at 15:30 Acetaminophen/ Hydrocodone Bitart ([place] (5/325)) 2 tab Q6H PRN PO SEVERE PAIN LEVEL 7-10 Last administered on 11/18/16 02:19; Admin Dose 2 TAB; Start 11/16/16 at 15:30 Morphine Sulfate (morphine) 2 mg Q4H PRN IV SEVERE PAIN LEVEL 7-10 Last administered on 11/17/16 19:51; Admin Dose 2 MG; Start 11/16/16 at 15:30 Hydromorphone HCl (Dilaudid) 0.5 mg Q4H PRN IV SEVERE PAIN LEVEL 7-10; Start at 15:30 Docusate Sodium (Colace) 100 mg Q12H PRN PO CONSTIPATION; Start 11/16/16 at 15: 30 Magnesium Hydroxide (Milk Of Mag) 30 ml DAILY PRN PO CONSTIPATION; Start at 15:30 Bisacodyl (Dulcolax Supp) 10 mg DAILY PRN [place] CONSTIPATION; Start 11/16/16 at 15: 30 Pantoprazole (Protonix Iv) 40 mg DAILY@06 IV Last administered on 11/18/16 06: 05; Admin Dose 40 MG; Start 11/17/16 at 06:00 Ondansetron HCl (Zofran Inj) 4 mg Q4H PRN IV NAUSEA AND/OR VOMITING Last administered on 11/18/16 09:27; Admin Dose 4 MG; Start 11/17/16 at 12:30 NEO FUENTES Nov 18, 2016 14:47
--- NOTE | 2016-11-18 16:41 | CONS ---
Date/Time of Note Date/Time of Note DATE: 11/18/16 TIME: 16:34 Assessment/Plan Assessment/Plan Additional Assessment/Plan Abdominal pain/nausea/vomiting, evaluate for choledocholithiasis versus acute cholelithiasis * MRCP * Mild hepatomegaly. * Fatty metamorphosis of the liver. * Dilated common bile duct with abrupt tapering distally. This may indicate a stricture which could be benign or malignant. * Borderline dilated pancreatic duct. * Check triglycerides * Trend lipase, amylase, direct and total bilirubin * IVF hydration * Pain management and nausea control * Recommend oncology consult * ERCP 11-17-16: * High grade 1.5 cm dilated CBD segment * Post Nepali #10 7 cm stent placed * A-Ampula, biopsy: -- Small intestinal mucosa with normal villous architecture showing in significant histopathological abnormality. * B-Distal common bile duct, brushing: -- No malignant cells are identified Fatty liver * Recommend weight loss Transaminitis * Likely secondary to above * Follow-up on hepatitis a serology * Monitor LFTs Consultation Date/Type/Reason Admit Date/Time Nov 16, 2016 at 14:57 Initial Consult Date 24 HR Interval Summary Free Text/Dictation Patient tolerating clear liquid diet, advance to full liquids Advised patient she needs to get EUS as outpatient to further evaluate pancreatic mass Advised patient of pathology results and stated further evaluation is needed Awaiting Hep A serology Exam/Review of Systems Vital Signs Vitals Vital Signs Date Time Temp Pulse Resp B/P Pulse Ox O2 Delivery O2 Flow Rate FiO2 11/18/16 08:39 97.4 80 18 149/70 87 11/18/16 08:30 Nasal Cannula 2.0 Intake and Output 11/17/16 11/17/16 11/18/16 14:59 22:59 06:59 Intake Total 1000 ml 800 ml 1200 ml Output Total 1200 ml Balance 1000 ml -400 ml 1200 ml Exam Constitutional: alert, oriented, well developed Psych: nl mood/affect Head: atraumatic Eyes: EOMI ENMT: mucosa pink and moist Respiratory: normal air movement Cardiovascular: regular rate and rhythm Gastrointestinal: soft, non tender Neurological: CORE DROPPER II-XII intact Results Result Diagram: 11/18/16 1355 11/18/16 1355 Results 24 hrs Laboratory Tests Test 11/18/16 04:44 11/18/16 13:55 CA 19-9 Antigen 80.2 H Alanine Aminotransferase (ALT/SGPT) 81 H Albumin 3.7 Albumin/Globulin Ratio 1.15 Alkaline Phosphatase 66 Anion Gap 18 H Aspartate Amino Transf (AST/SGOT) 43 Basophils # 0.0 Basophils % 0.2 Blood Morphology Comment Blood Urea Nitrogen 8 Calcium Level 8.5 Carbon Dioxide Level 24 Chloride Level 105 Creatinine 0.46 Direct Bilirubin 0.00 Eosinophils # 0.0 Eosinophils % 0.0 Globulin 3.20 Glucose Level 111 Hematocrit 38.5 Hemoglobin 12.9 Indirect Bilirubin 0.7 Lymphocytes # 1.7 Lymphocytes % 12.6 L Mean Corpuscular Hemoglobin 28.5 L Mean Corpuscular Hemoglobin Concent 33.4 Mean Corpuscular Volume 85.3 Mean Platelet Volume 7.9 Monocytes # 0.4 Monocytes % 3.2 Neutrophils # 11.3 H Neutrophils % 84.0 H Nucleated Red Blood Cells # 0.0 Nucleated Red Blood Cells % 0.0 Platelet Count 209 # Potassium Level 4.0 Red Blood Count 4.52 Red Cell Distribution Width 14.3 Sodium Level 143 Total Bilirubin 0.7 Total Protein 6.9 White Blood Count 13.4 H Medications Medications Current Medications Amlodipine Besylate (Norvasc) 10 mg DAILY PO Last administered on 11/18/16 09: 17; Admin Dose 10 MG; Start 11/17/16 at 09:00 Paroxetine HCl 20 mg 20 mg DAILY PO Last administered on 11/18/16 09:16; Admin Dose 20 MG; Start 11/17/16 at 09:00 Sodium Chloride (NS) 1,000 ml @ 75 mls/hr [id number] IV Last administered on 19:07; Admin Dose 75 MLS/HR; Start 11/16/16 at 15:07 Acetaminophen (Tylenol Tab) 650 mg Q6H PRN PO PAIN LEVEL 1-3 OR FEVER; Start at 15:30 Acetaminophen (Tylenol Supp) 650 mg Q6H PRN [place] PAIN LEVEL 1-3 OR FEVER; Start 11/16/16 at 15:30 Acetaminophen/ Hydrocodone Bitart ([place] (5/325)) 1 tab Q6H PRN PO MODERATE PAIN LEVEL 4-6 Last administered on 11/18/16 09:31; Admin Dose 1 TAB; Start 11/16 at 15:30 Acetaminophen/ Hydrocodone Bitart ([place] (5/325)) 2 tab Q6H PRN PO SEVERE PAIN LEVEL 7-10 Last administered on 11/18/16 02:19; Admin Dose 2 TAB; Start 11/16/16 at 15:30 Morphine Sulfate (morphine) 2 mg Q4H PRN IV SEVERE PAIN LEVEL 7-10 Last administered on 11/17/16 19:51; Admin Dose 2 MG; Start 11/16/16 at 15:30 Hydromorphone HCl (Dilaudid) 0.5 mg Q4H PRN IV SEVERE PAIN LEVEL 7-10; Start at 15:30 Docusate Sodium (Colace) 100 mg Q12H PRN PO CONSTIPATION; Start 11/16/16 at 15: 30 Magnesium Hydroxide (Milk Of Mag) 30 ml DAILY PRN PO CONSTIPATION; Start at 15:30 Bisacodyl (Dulcolax Supp) 10 mg DAILY PRN [place] CONSTIPATION; Start 11/16/16 at 15: 30 Pantoprazole (Protonix Iv) 40 mg DAILY@06 IV Last administered on 11/18/16 06: 05; Admin Dose 40 MG; Start 11/17/16 at 06:00 Ondansetron HCl (Zofran Inj) 4 mg Q4H PRN IV NAUSEA AND/OR VOMITING Last administered on 11/18/16 09:27; Admin Dose 4 MG; Start 11/17/16 at 12:30 DENA MAYER Nov 18, 2016 16:41
[2016-11-18 19:26] VITALS: BP 162/77; RESP 20
[2016-11-19] MEDS: PANTOPRAZOLE 40 MG INJ IV SCH (06:22)
[2016-11-19 08:26] VITALS: BP 167/53; RESP 18
[2016-11-19] MEDS: AMLODIPINE 10 MG TAB PO SCH (08:33)
[2016-11-19] MEDS: PAROXETINE 20 MG TAB PO SCH (08:33)
[2016-11-19] MEDS: SOD CHLORIDE 0.9% 1,000 ML IV SCH ×2 (12:02→22:19)
[2016-11-19] MEDS: LISINOPRIL 5 MG TAB PO SCH ×2 (12:03→21:07)
[2016-11-19] MEDS: ACETAMINOPHEN 325 MG TAB PO PRN ×2 (12:03→18:38)
[2016-11-19 12:08] VITALS: BP 149/68
--- NOTE | 2016-11-19 13:11 | PN ---
Date/Time of Note Date/Time of Note DATE: 11/19/16 TIME: 13:00 Assessment/Plan VTE Prophylaxis VTE Prophylaxis Intervention: SCD's Lines/Catheters IV [facility] (from [facility]): Peripheral IV Assessment/Plan Chief Complaint/Hosp Course Assessment and plan 1. Pancreatitis. Lipase levels downward trend. Continue IV hydration. We'll advance diet as tolerated 2. CBD dilation. Patient did have MRCP that did show: Dilated common bile duct with abrupt tapering distally. This may indicate a stricture which could be benign or malignant Used Car Make Ready Worker following. Patient status post ERCP. Follow-up on pathology for brushings of distal CBD 3. History of essential hypertension. We will continue patient on her amlodipine. 4. Diverticulosis without diverticulitis. Patient to be given IV hydration for now. At that site as tolerated 5. History of arthritis. We will provide with analgesics as needed. 6. Leukocytosis, likely secondary to #1. Off antibiotics at this time. Likely inflammatory process. Remains afebrile at present. We'll monitor for now 7. Elevated CA 19-9. patient with pathology of CBD brushing showing: A-Ampula, biopsy: -- Small intestinal mucosa with normal villous architecture showing in significant histopathological abnormality. B-Distal common bile duct, brushing: -- No malignant cells are identified. Deep venous thrombosis prophylaxis: SCDs. GI prophylaxis: PPI. Disposition and plan: Patient status post ERCP. Biopsy with brushing from ERCP was negative for malignant cells. CA 19-9 was noted be highly elevated. Discussed with Dr. Ashford, will get oncology consultation Discussed but of care with Problems: Subjective 24 Hr Interval Summary Free Text/Dictation resting at this time. no s/s of distress. denies any abdominal pain Exam/Review of Systems Vital Signs Vitals Vital Signs Date Time Temp Pulse Resp B/P Pulse Ox O2 Delivery O2 Flow Rate FiO2 11/19/16 08:26 97.8 78 18 167/53 90 11/18/16 21:00 Nasal Cannula 2.0 Intake and Output 11/18/16 11/18/16 11/19/16 15:00 23:00 07:00 Intake Total 740 ml 1450 ml Output Total 50 ml 900 ml Balance 690 ml 550 ml Exam General: No acute signs or symptoms of distress Eyes: pupils equal round, Anicteric sclera Neck: Supple nontender, no JVD Cardiac: S1, S2 auscultated, regular rhythm and rate Pulmonary: No coarse rhonchi or breathing auscultated GI: Abdomen soft nontender nondistended, bowel sounds active Extremities: No edema bilateral lower extremities Skin: Clean dry and intact Neurologic: Alert to person place and time and situation Results Result Diagram: 11/18/16 1355 11/18/16 1355 Results 24 hrs Laboratory Tests Test 11/18/16 13:55 Alanine Aminotransferase (ALT/SGPT) 81 H Albumin 3.7 Albumin/Globulin Ratio 1.15 Alkaline Phosphatase 66 Anion Gap 18 H Aspartate Amino Transf (AST/SGOT) 43 Basophils # 0.0 Basophils % 0.2 Blood Morphology Comment Blood Urea Nitrogen 8 Calcium Level 8.5 Carbon Dioxide Level 24 Chloride Level 105 Creatinine 0.46 Direct Bilirubin 0.00 Eosinophils # 0.0 Eosinophils % 0.0 Globulin 3.20 Glucose Level 111 Hematocrit 38.5 Hemoglobin 12.9 Indirect Bilirubin 0.7 Lymphocytes # 1.7 Lymphocytes % 12.6 L Mean Corpuscular Hemoglobin 28.5 L Mean Corpuscular Hemoglobin Concent 33.4 Mean Corpuscular Volume 85.3 Mean Platelet Volume 7.9 Monocytes # 0.4 Monocytes % 3.2 Neutrophils # 11.3 H Neutrophils % 84.0 H Nucleated Red Blood Cells # 0.0 Nucleated Red Blood Cells % 0.0 Platelet Count 209 # Potassium Level 4.0 Red Blood Count 4.52 Red Cell Distribution Width 14.3 Sodium Level 143 Total Bilirubin 0.7 Total Protein 6.9 White Blood Count 13.4 H Medications Medications Current Medications Paroxetine HCl 20 mg 20 mg DAILY PO Last administered on 11/19/16 08:33; Admin Dose 20 MG; Start 11/17/16 at 09:00 Sodium Chloride (NS) 1,000 ml @ 75 mls/hr [id number] IV Last administered on 12:02; Admin Dose 75 MLS/HR; Start 11/16/16 at 15:07 Acetaminophen (Tylenol Tab) 650 mg Q6H PRN PO PAIN LEVEL 1-3 OR FEVER Last administered on 11/19/16 12:03; Admin Dose 650 MG; Start 11/16/16 at 15:30 Acetaminophen (Tylenol Supp) 650 mg Q6H PRN [place] PAIN LEVEL 1-3 OR FEVER; Start 11/16/16 at 15:30 Acetaminophen/ Hydrocodone Bitart ([place] (5/325)) 1 tab Q6H PRN PO MODERATE PAIN LEVEL 4-6 Last administered on 11/18/16 19:12; Admin Dose 1 TAB; Start 11/16 at 15:30 Acetaminophen/ Hydrocodone Bitart ([place] (5/325)) 2 tab Q6H PRN PO SEVERE PAIN LEVEL 7-10 Last administered on 11/18/16 02:19; Admin Dose 2 TAB; Start 11/16/16 at 15:30 Morphine Sulfate (morphine) 2 mg Q4H PRN IV SEVERE PAIN LEVEL 7-10 Last administered on 11/17/16 19:51; Admin Dose 2 MG; Start 11/16/16 at 15:30 Hydromorphone HCl (Dilaudid) 0.5 mg Q4H PRN IV SEVERE PAIN LEVEL 7-10; Start at 15:30 Docusate Sodium (Colace) 100 mg Q12H PRN PO CONSTIPATION; Start 11/16/16 at 15: 30 Magnesium Hydroxide (Milk Of Mag) 30 ml DAILY PRN PO CONSTIPATION; Start at 15:30 Bisacodyl (Dulcolax Supp) 10 mg DAILY PRN [place] CONSTIPATION; Start 11/16/16 at 15: 30 Pantoprazole (Protonix Iv) 40 mg DAILY@06 IV Last administered on 11/19/16 06: 22; Admin Dose 40 MG; Start 11/17/16 at 06:00 Ondansetron HCl (Zofran Inj) 4 mg Q4H PRN IV NAUSEA AND/OR VOMITING Last administered on 11/18/16 16:13; Admin Dose 4 MG; Start 11/17/16 at 12:30 Amlodipine Besylate (Norvasc) 5 mg BID PO ; Start 11/19/16 at 21:00 Lisinopril (Zestril) 5 mg BID PO Last administered on 11/19/16 12:03; Admin Dose 5 MG; Start 11/19/16 at 11:30 NEO FUENTES Nov 19, 2016 13:10
[2016-11-19 16:10] VITALS: BP 156/74; PULSE 79; RESP 16
[2016-11-19 20:53] VITALS: BP 155/72; RESP 18
--- NOTE | 2016-11-19 20:59 | CONS ---
Date/Time of Note Date/Time of Note DATE: 11/19/16 TIME: 20:59 Consultation Date/Type/Reason Admit Date/Time Nov 16, 2016 at 14:57 Psychological: nl mood/affect Past Medical History Medical History: hypertension, other (Arthritis) Past Surgical History Past Surgical Hx: appendectomy Social History Alcohol Use: occasionally Smoking Status: Never smoker Exam/Review of Systems Vital Signs Vitals Vital Signs Date Time Temp Pulse Resp B/P Pulse Ox O2 Delivery O2 Flow Rate FiO2 11/19/16 20:53 98.1 76 18 155/72 94 11/19/16 20:17 Nasal Cannula 1.0 Intake and Output 11/18/16 11/18/16 11/19/16 15:00 23:00 07:00 Intake Total 740 ml 1450 ml Output Total 50 ml 900 ml Balance 690 ml 550 ml Results Result Diagram: 11/18/16 1355 11/18/16 1355 Medications Medications Current Medications Paroxetine HCl 20 mg 20 mg DAILY PO Last administered on 11/19/16 08:33; Admin Dose 20 MG; Start 11/17/16 at 09:00 Sodium Chloride (NS) 1,000 ml @ 75 mls/hr [id number] IV Last administered on 12:02; Admin Dose 75 MLS/HR; Start 11/16/16 at 15:07 Acetaminophen (Tylenol Tab) 650 mg Q6H PRN PO PAIN LEVEL 1-3 OR FEVER Last administered on 11/19/16 18:38; Admin Dose 650 MG; Start 11/16/16 at 15:30 Acetaminophen (Tylenol Supp) 650 mg Q6H PRN [place] PAIN LEVEL 1-3 OR FEVER; Start 11/16/16 at 15:30 Acetaminophen/ Hydrocodone Bitart ([place] (5/325)) 1 tab Q6H PRN PO MODERATE PAIN LEVEL 4-6 Last administered on 11/18/16 19:12; Admin Dose 1 TAB; Start 11/16 at 15:30 Acetaminophen/ Hydrocodone Bitart ([place] (5/325)) 2 tab Q6H PRN PO SEVERE PAIN LEVEL 7-10 Last administered on 11/18/16 02:19; Admin Dose 2 TAB; Start 11/16/16 at 15:30 Morphine Sulfate (morphine) 2 mg Q4H PRN IV SEVERE PAIN LEVEL 7-10 Last administered on 11/17/16 19:51; Admin Dose 2 MG; Start 11/16/16 at 15:30 Hydromorphone HCl (Dilaudid) 0.5 mg Q4H PRN IV SEVERE PAIN LEVEL 7-10; Start at 15:30 Docusate Sodium (Colace) 100 mg Q12H PRN PO CONSTIPATION; Start 11/16/16 at 15: 30 Magnesium Hydroxide (Milk Of Mag) 30 ml DAILY PRN PO CONSTIPATION; Start at 15:30 Bisacodyl (Dulcolax Supp) 10 mg DAILY PRN [place] CONSTIPATION; Start 11/16/16 at 15: 30 Pantoprazole (Protonix Iv) 40 mg DAILY@06 IV Last administered on 11/19/16 06: 22; Admin Dose 40 MG; Start 11/17/16 at 06:00 Ondansetron HCl (Zofran Inj) 4 mg Q4H PRN IV NAUSEA AND/OR VOMITING Last administered on 11/18/16 16:13; Admin Dose 4 MG; Start 11/17/16 at 12:30 Amlodipine Besylate (Norvasc) 5 mg BID PO ; Start 11/19/16 at 21:00 Lisinopril (Zestril) 5 mg BID PO Last administered on 11/19/16 12:03; Admin Dose 5 MG; Start 11/19/16 at 11:30 SHAY KIM MD Nov 19, 2016 20:59
[2016-11-19] MEDS: AMLODIPINE 5 MG TAB PO SCH (21:07)
[2016-11-20 02:29] VITALS: BP 163/75; RESP 18
[2016-11-20] MEDS: PANTOPRAZOLE (EC) 40 MG TAB PO SCH (05:08)
[2016-11-20] MEDS: ACETAMINOPHEN 325 MG TAB PO PRN (05:09)
[2016-11-20 06:08] LABS: BASOPHILS % 0.4 % (0.0-2.0); EOSINOPHILS % 0.5 % (0.0-7.0); HEMATOCRIT 36.1 % (37.0-47.0); HEMOGLOBIN 12.5 g/dl (12.0-16.0); LYMPHOCYTES # 1.8 10^3/ul (0.8-2.9); LYMPHOCYTES % 21.1 % (15.0-51.0); MEAN CORPUSCULAR HEMOGLOBIN 29.4 pg (29.0-33.0); MEAN CORPUSCULAR HGB CONC 34.7 g/dl (32.0-37.0); MEAN CORPUSCULAR VOLUME 84.8 fl (82.0-101.0); MONOCYTE # 0.5 10^3/ul (0.3-0.9); PLATELET COUNT 239 10^3/UL (140-440); RED BLOOD COUNT 4.26 10^6/ul (4.20-5.40); RED CELL DISTRIBUTION WIDTH 13.6 % (11.5-14.5); UNCORRECTED WBC 8.4 10^3/ul (4.8-10.8); WHITE BLOOD COUNT 8.4 10^3/ul (4.8-10.8)
[2016-11-20 06:27] LABS: CONDITION 1
[2016-11-20 06:31] LABS: CREATININE 0.39 mg/dl (0.44-1.00)
[2016-11-20 06:32] LABS: CALCIUM 8.5 mg/dl (8.4-10.2)
[2016-11-20 07:00] LABS: POTASSIUM 2.9 mmol/L (3.5-5.1)
[2016-11-20] MEDS ORDERED: POTASSIUM CHLORIDE (SR) 20 MEQ TAB PO STA (07:08)
[2016-11-20 08:27] VITALS: BP 162/73; RESP 22
[2016-11-20] MEDS ORDERED: POTASSIUM CHLORIDE 250 ML IVPB ONE (08:30)
[2016-11-20] MEDS: PAROXETINE 20 MG TAB PO SCH (09:51)
[2016-11-20] MEDS: AMLODIPINE 5 MG TAB PO SCH ×2 (09:52→21:39)
[2016-11-20] MEDS: SOD CHLORIDE 0.9% 1,000 ML IV SCH (09:52)
[2016-11-20] MEDS: LISINOPRIL 5 MG TAB PO SCH ×2 (09:52→21:38)
--- NOTE | 2016-11-20 10:10 | CONS ---
Date/Time of Note Date/Time of Note DATE: 11/20/16 TIME: 10:06 Assessment/Plan Assessment/Plan Additional Assessment/Plan Abdominal pain/nausea/vomiting, evaluate for choledocholithiasis versus acute cholelithiasis * MRCP * Mild hepatomegaly. * Fatty metamorphosis of the liver. * Dilated common bile duct with abrupt tapering distally. This may indicate a stricture which could be benign or malignant. * Borderline dilated pancreatic duct. * Check triglycerides * Trend lipase, amylase, direct and total bilirubin * Advance diet as tolerated * Pain management and nausea control * ERCP 11-17-15: * High grade 1.5 cm dilated CBD segment * Post [place] #10 7 cm stent placed * A-Ampula, biopsy: -- Small intestinal mucosa with normal villous architecture showing in significant histopathological abnormality. * B-Distal common bile duct, brushing: -- No malignant cells are identified * Oncology following Fatty liver * Recommend weight loss Transaminitis * Likely secondary to above * Follow-up on hepatitis A serology * Monitor LFTs Further recommendations depend on clinical course Patient seen in collaboration with Dr. Aguilera Consultation Date/Type/Reason Admit Date/Time Nov 16, 2016 at 14:57 Type of Consultation: Gastroenterology Reason for Consultation Biliary obstruction 24 HR Interval Summary Free Text/Dictation Patient tolerating diet Denies abdominal pain, nausea, vomiting Reiterated needs outpatient follow-up for EUS Oncology consult in progress Lipase trending downward Exam/Review of Systems Vital Signs Vitals Vital Signs Date Time Temp Pulse Resp B/P Pulse Ox O2 Delivery O2 Flow Rate FiO2 11/20/16 08:27 98.4 86 22 162/73 92 11/19/16 20:17 Nasal Cannula 1.0 Intake and Output 11/19/16 11/19/16 11/20/16 15:00 23:00 07:00 Intake Total 1940 ml 1950 ml Output Total 1100 ml Balance 1940 ml 850 ml Exam Constitutional: alert, oriented, well developed Psych: nl mood/affect Head: atraumatic Eyes: EOMI ENMT: mucosa pink and moist Respiratory: normal air movement Cardiovascular: regular rate and rhythm Gastrointestinal: soft, non tender Neurological: DIGITAL BUSINESS ANALYST II-XII intact Results Result Diagram: 11/20/16 0424 11/20/16 0434 Results 24 hrs Laboratory Tests Test 11/20/16 04:24 11/20/16 04:34 Basophils # 0.0 Basophils % 0.4 Eosinophils # 0.0 Eosinophils % 0.5 Hematocrit 36.1 L Hemoglobin 12.5 Lipase 485 H Lymphocytes # 1.8 Lymphocytes % 21.1 Mean Corpuscular Hemoglobin 29.4 Mean Corpuscular Hemoglobin Concent 34.7 Mean Corpuscular Volume 84.8 Mean Platelet Volume 8.0 Monocytes # 0.5 Monocytes % 6.0 Neutrophils # 6.0 Neutrophils % 72.0 Nucleated Red Blood Cells # 0.0 Nucleated Red Blood Cells % 0.0 Platelet Count 239 Red Blood Count 4.26 Red Cell Distribution Width 13.6 White Blood Count 8.4 # Anion Gap 14 Blood Urea Nitrogen 8 Calcium Level 8.5 Carbon Dioxide Level 31 Chloride Level 102 Creatinine 0.39 L Glucose Level 84 Potassium Level 2.9 *L Sodium Level 144 Medications Medications Current Medications Paroxetine HCl 20 mg 20 mg DAILY PO Last administered on 11/20/16 09:51; Admin Dose 20 MG; Start 11/17/16 at 09:00 Sodium Chloride (NS) 1,000 ml @ 75 mls/hr [id number] IV Last administered on 09:52; Admin Dose 75 MLS/HR; Start 11/16/16 at 15:07 Acetaminophen (Tylenol Tab) 650 mg Q6H PRN PO PAIN LEVEL 1-3 OR FEVER Last administered on 11/20/16 05:09; Admin Dose 650 MG; Start 11/16/16 at 15:30 Acetaminophen (Tylenol Supp) 650 mg Q6H PRN [place] PAIN LEVEL 1-3 OR FEVER; Start 11/16/16 at 15:30 Acetaminophen/ Hydrocodone Bitart ([place] (5/325)) 1 tab Q6H PRN PO MODERATE PAIN LEVEL 4-6 Last administered on 11/18/16 19:12; Admin Dose 1 TAB; Start 11/16 at 15:30 Acetaminophen/ Hydrocodone Bitart ([place] (5/325)) 2 tab Q6H PRN PO SEVERE PAIN LEVEL 7-10 Last administered on 11/18/16 02:19; Admin Dose 2 TAB; Start 11/16/16 at 15:30 Morphine Sulfate (morphine) 2 mg Q4H PRN IV SEVERE PAIN LEVEL 7-10 Last administered on 11/17/16 19:51; Admin Dose 2 MG; Start 11/16/16 at 15:30 Hydromorphone HCl (Dilaudid) 0.5 mg Q4H PRN IV SEVERE PAIN LEVEL 7-10; Start at 15:30 Docusate Sodium (Colace) 100 mg Q12H PRN PO CONSTIPATION; Start 11/16/16 at 15: 30 Magnesium Hydroxide (Milk Of Mag) 30 ml DAILY PRN PO CONSTIPATION; Start at 15:30 Bisacodyl (Dulcolax Supp) 10 mg DAILY PRN [place] CONSTIPATION; Start 11/16/16 at 15: 30 Ondansetron HCl (Zofran Inj) 4 mg Q4H PRN IV NAUSEA AND/OR VOMITING Last administered on 11/18/16 16:13; Admin Dose 4 MG; Start 11/17/16 at 12:30 Amlodipine Besylate (Norvasc) 5 mg BID PO Last administered on 11/20/16 09:52; Admin Dose 5 MG; Start 11/19/16 at 21:00 Lisinopril (Zestril) 5 mg BID PO Last administered on 11/20/16 09:52; Admin Dose 5 MG; Start 11/19/16 at 11:30 Pantoprazole 40 mg 40 mg DAILY@06 PO Last administered on 11/20/16 05:08; Admin Dose 40 MG; Start 11/20/16 at 06:00 Potassium Chloride (KCl 40 MEQ/250 ML NS) 250 ml @ 62.5 mls/hr ONCE ONCE IVPB Last administered on 11/20/16 09:51; Admin Dose 62.5 MLS/HR; Start 11/20/16 at 08:30; Stop 11/20/16 at 12:29 DENA MAYER Nov 20, 2016 10:10
--- NOTE | 2016-11-20 10:15 | GILP ---
DATE OF PROCEDURE: DATE: ____ NAME OF PROCEDURE: Endoscopic retrograde cholangiopancreatography with endoscopic retrograde sphinct erotomy and brushings of the biliary tree as well as biopsies and stent placement. SURGEON: Jerome Aguilera MD PREOPERATIVE DIAGNOSIS: ____ POSTOPERATIVE DIAGNOSIS: ____ HISTORY AND INDICATIONS: ____ PREMEDICATION: General anesthesia by anesthesiologist. INSTRUMENT USED: Olympus side-viewing panendoscope. TECHNIQUE: After informed consent, with the patient/relatives understanding the procedure, its indic ations, potential risks and complications, including but not limited to: allergic reaction, bleeding , perforation or infection, and after all pertinent questions were answered to the patients satisfac tion, the patient/relatives signed witnessed informed consent. Following this, premedication was administered slowly IV push under careful cardiovascular and respi ratory monitoring with pulse oximetry, automatic blood pressure and crusher wet ground mica. Once the sedative effect was achieved the patient was place in the prone position in the radiology s pecial procedures suite; the side viewing panendoscope was introduced and advanced under visual cont rol. Careful examination of the upper gastrointestinal tract, both on insertion as well as withdrawal of the instrument disclosed the following findings: ESOPHAGUS: The mucosa of the entire esophagus appears within normal limits. There is no evidence of esophagitis, varices, neoplasm or stricture. No Hiatal Hernia identified. STOMACH: Upon entrance to the stomach air was insufflated, the gastric ellis distended normally. The mucosa of the fundus, body and antrum of the stomach was carefully examined both head-on and on ret roflexion, and shows no abnormalities. There is no evidence of gastritis, ulcers or neoplasm. PYLORUS: The pylorus appears patent and within normal limits, with no evidence of gastric outlet obs truction. DUODENUM: The duodenal mucosa was carefully examined in the duodenal bulb as well as the second port ion of the duodenum and appears unremarkable with no evidence of duodenitis, ulcer or neoplasm. AMPULLA OF VATER: Ampulla was identified and appears somewhat generous, but otherwise unremarkable. Biopsies were obtained upon termination of this examination. CANNULATION: Cannulation was rather difficult and we opacified initially the pancreatic duct which a ppears slightly dilated, but otherwise unremarkable. Eventually, we were able to opacify the biliar y tree. There is a 1.5 cm distal CBD tight stricture, raising the possibility or neoplasm. The pro ximal biliary tree is significantly dilated but with no additional intraductal pathology. At this point, a small sphincterotomy was performed. Following this a brush was utilized to brush t he distal common bile duct and a Dutch-10, 7 cm stent was introduced without difficulty and with ex cellent drainage. IMPRESSION: 1. High-grade 1.5 cm distal common bile duct segment narrowing raising questions of possibility or neoplasm. 2. Post endoscopic retrograde sphincterotomy and brushings. Post-placement of Dutch-10, 7 cm sten t and also post-ampullary biopsies. PLAN: The patient will be continued on present regimen. She will be closely observed. CA 19-9, CA titers will be requested, cytology brushing and pathology obtained today will be reviewed as soon a s available. The patient will likely require endoscopic ultrasonography to further determine the na ture of the obstructive lesion in the distal common bile duct. Dictated By: JEROME PORTILLO Conf#: [id number] DID#: [id number]
[2016-11-20] MEDS ORDERED: HYDR-3498 PO (11:43)
[2016-11-20] MEDS ORDERED: AMLO-145 PO (11:43)
[2016-11-20] MEDS ORDERED: LISI-313 PO (11:43)
--- NOTE | 2016-11-20 11:46 | PDOCDIS ---
Discharge Instructions DIAGNOSIS Discharge Diagnosis: 1. Pancreatitis 2. CBD dilation, with noted stricture status post stent teresa CONDITION Patient Condition: Stable HOME CARE INSTRUCTIONS: Diet Instructions: Low Fat /Cholesterol FOLLOW UP/APPOINTMENTS Appointments 1. Follow up with your primary care provider in one week 2. Follow up with Dr. Rebecca Luna in one week 3. Follow up with Dr.Mordo Aguilera in one week 4. Follow up with Dr. Ant Gomes in 1-2 weeks NEO FUENTES Nov 20, 2016 11:46
--- NOTE | 2016-11-20 12:56 | PN ---
Date/Time of Note Date/Time of Note DATE: 11/20/16 TIME: 12:45 Assessment/Plan VTE Prophylaxis VTE Prophylaxis Intervention: SCD's Lines/Catheters IV C[facility]ter Type (from [facility] Peripheral IV Assessment/Plan Chief Complaint/Hosp Course Assessment and plan 1. Pancreatitis. Lipase levels downward trend. Continue IV hydration. We'll advance diet as tolerated 2. CBD dilation. Patient did have MRCP that did show: Dilated common bile duct with abrupt tapering distally. 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 Patient status post ERCP with stent. cont with GI recs 3. History of essential hypertension. We will continue patient on her amlodipine. 4. Diverticulosis without diverticulitis. asymptomatic at present. Will monitor 5. History of arthritis. We will provide with analgesics as needed. 6. Leukocytosis, likely secondary to #1. Off antibiotics at this time. Likely inflammatory process. Remains afebrile at present. We'll monitor for now 7. Elevated CA 19-9. patient with pathology of CBD brushing showing: A-Ampula, biopsy: -- Small intestinal mucosa with normal villous architecture showing in significant histopathological abnormality. B-Distal common bile duct, brushing: -- No malignant cells are identified. Discussed with oncologist, will get hepatobiliary surgical consult Deep venous thrombosis prophylaxis: SCDs. GI prophylaxis: PPI. Disposition and plan: Patient status post ERCP. Biopsy with brushing from ERCP was negative for malignant cells. CA 19-9 was noted be highly elevated. Discussed with oncologist, will get hepatobiliary surgical consult. Will follow up Discussed but of care with Problems: Subjective 24 Hr Interval Summary Free Text/Dictation comfortable. denies any abdominal pain at this time Exam/Review of Systems Vital Signs Vitals Vital Signs Date Time Temp Pulse Resp B/P Pulse Ox O2 Delivery O2 Flow Rate FiO2 11/20/16 08:27 98.4 86 22 162/73 92 11/19/16 20:17 Nasal Cannula 1.0 Intake and Output 11/19/16 11/19/16 11/20/16 15:00 23:00 07:00 Intake Total 1940 ml 1950 ml Output Total 1100 ml Balance 1940 ml 850 ml Exam General: No acute signs or symptoms of distress Eyes: pupils equal round, Anicteric sclera Neck: Supple nontender, no JVD Cardiac: S1, S2 auscultated, regular rhythm and rate Pulmonary: No coarse rhonchi or breathing auscultated GI: Abdomen soft nontender nondistended, bowel sounds active Extremities: No edema bilateral lower extremities Skin: Clean dry and intact Neurologic: Alert to person place and time and situation Results Result Diagram: 11/20/16 0424 11/20/16 0434 Results 24 hrs Laboratory Tests Test 11/20/16 04:24 11/20/16 04:34 Basophils # 0.0 Basophils % 0.4 Eosinophils # 0.0 Eosinophils % 0.5 Hematocrit 36.1 L Hemoglobin 12.5 Lipase 485 H Lymphocytes # 1.8 Lymphocytes % 21.1 Mean Corpuscular Hemoglobin 29.4 Mean Corpuscular Hemoglobin Concent 34.7 Mean Corpuscular Volume 84.8 Mean Platelet Volume 8.0 Monocytes # 0.5 Monocytes % 6.0 Neutrophils # 6.0 Neutrophils % 72.0 Nucleated Red Blood Cells # 0.0 Nucleated Red Blood Cells % 0.0 Platelet Count 239 Red Blood Count 4.26 Red Cell Distribution Width 13.6 White Blood Count 8.4 # Anion Gap 14 Blood Urea Nitrogen 8 Calcium Level 8.5 Carbon Dioxide Level 31 Chloride Level 102 Creatinine 0.39 L Glucose Level 84 Potassium Level 2.9 *L Sodium Level 144 Medications Medications Current Medications Paroxetine HCl 20 mg 20 mg DAILY PO Last administered on 11/20/16 09:51; Admin Dose 20 MG; Start 11/17/16 at 09:00 Sodium Chloride (NS) 1,000 ml @ 75 mls/hr [id number] IV Last administered on 09:52; Admin Dose 75 MLS/HR; Start 11/16/16 at 15:07 Acetaminophen (Tylenol Tab) 650 mg Q6H PRN PO PAIN LEVEL 1-3 OR FEVER Last administered on 11/20/16 05:09; Admin Dose 650 MG; Start 11/16/16 at 15:30 Acetaminophen (Tylenol Supp) 650 mg Q6H PRN [place] PAIN LEVEL 1-3 OR FEVER; Start 11/16/16 at 15:30 Acetaminophen/ Hydrocodone Bitart ([place] (5/325)) 1 tab Q6H PRN PO MODERATE PAIN LEVEL 4-6 Last administered on 11/18/16 19:12; Admin Dose 1 TAB; Start 11/16 at 15:30 Acetaminophen/ Hydrocodone Bitart ([place] (5/325)) 2 tab Q6H PRN PO SEVERE PAIN LEVEL 7-10 Last administered on 11/18/16 02:19; Admin Dose 2 TAB; Start 11/16/16 at 15:30 Morphine Sulfate (morphine) 2 mg Q4H PRN IV SEVERE PAIN LEVEL 7-10 Last administered on 11/17/16 19:51; Admin Dose 2 MG; Start 11/16/16 at 15:30 Hydromorphone HCl (Dilaudid) 0.5 mg Q4H PRN IV SEVERE PAIN LEVEL 7-10; Start at 15:30 Docusate Sodium (Colace) 100 mg Q12H PRN PO CONSTIPATION; Start 11/16/16 at 15: 30 Magnesium Hydroxide (Milk Of Mag) 30 ml DAILY PRN PO CONSTIPATION; Start at 15:30 Bisacodyl (Dulcolax Supp) 10 mg DAILY PRN [place] CONSTIPATION; Start 11/16/16 at 15: 30 Ondansetron HCl (Zofran Inj) 4 mg Q4H PRN IV NAUSEA AND/OR VOMITING Last administered on 11/18/16 16:13; Admin Dose 4 MG; Start 11/17/16 at 12:30 Amlodipine Besylate (Norvasc) 5 mg BID PO Last administered on 11/20/16 09:52; Admin Dose 5 MG; Start 11/19/16 at 21:00 Lisinopril (Zestril) 5 mg BID PO Last administered on 11/20/16 09:52; Admin Dose 5 MG; Start 11/19/16 at 11:30 Pantoprazole (Protonix Tab) 40 mg DAILY@06 PO Last administered on 11/20/16 05: 08; Admin Dose 40 MG; Start 11/20/16 at 06:00 NEO FUENTES Nov 20, 2016 12:56
--- NOTE | 2016-11-20 13:04 | CONS ---
Date/Time of Note Date/Time of Note DATE: 11/20/16 TIME: 12:54 Assessment/Plan Assessment/Plan Chief Complaint/Hosp Course Abdominal pain/nausea/vomiting WITH HIGH- GRADE CBD STENOSIS * MRCP * Mild hepatomegaly. * Fatty metamorphosis of the liver. * Dilated common bile duct with abrupt tapering distally. This may indicate a stricture which could be benign or malignant. * Borderline dilated pancreatic duct. * ERCP 16: * High grade 1.5 cm dilated CBD segment * Post [place] #10 7 cm stent placed * A-Ampula, biopsy: -- Small intestinal mucosa with normal villous architecture showing in significant histopathological abnormality. * B-Distal common bile duct, brushing: -- No malignant cells are identified The patient will likely require endoscopic ultrasonography to further determine the nature of the obstructive lesion in the distal common bile duct. OBTAIN HBI CONSULT- D/W DR LOTT, PT AND FAMILY Fatty liver * Recommend weight loss Transaminitis * Likely secondary to above hepatitis A serology- POSITIVE * Monitor LFTs Problems: Consultation Date/Type/Reason Admit Date/Time Nov 16, 2016 at 14:57 Initial Consult Date Type of Consultation: hemeonc 24 HR Interval Summary Free Text/Dictation ALL NOTED BX- NEG FELLING BETTER Exam/Review of Systems Vital Signs Vitals Vital Signs Date Time Temp Pulse Resp B/P Pulse Ox O2 Delivery O2 Flow Rate FiO2 11/20/16 08:27 98.4 86 22 162/73 92 11/19/16 20:17 Nasal Cannula 1.0 Intake and Output 11/19/16 11/19/16 11/20/16 15:00 23:00 07:00 Intake Total 1940 ml 1950 ml Output Total 1100 ml Balance 1940 ml 850 ml Exam Constitutional: alert, oriented, well developed Psych: nl mood/affect Head: atraumatic Eyes: EOMI ENMT: mucosa pink and moist Respiratory: normal air movement Cardiovascular: regular rate and rhythm Gastrointestinal: soft, non tender Neurological: WALKING DRAGLINE OPERATOR II-XII intact NO PATH LN-AMADA Results Result Diagram: 11/20/16 0424 11/20/16 0434 Results 24 hrs Laboratory Tests Test 11/20/16 04:24 11/20/16 04:34 Basophils # 0.0 Basophils % 0.4 Eosinophils # 0.0 Eosinophils % 0.5 Hematocrit 36.1 L Hemoglobin 12.5 Lipase 485 H Lymphocytes # 1.8 Lymphocytes % 21.1 Mean Corpuscular Hemoglobin 29.4 Mean Corpuscular Hemoglobin Concent 34.7 Mean Corpuscular Volume 84.8 Mean Platelet Volume 8.0 Monocytes # 0.5 Monocytes % 6.0 Neutrophils # 6.0 Neutrophils % 72.0 Nucleated Red Blood Cells # 0.0 Nucleated Red Blood Cells % 0.0 Platelet Count 239 Red Blood Count 4.26 Red Cell Distribution Width 13.6 White Blood Count 8.4 # Anion Gap 14 Blood Urea Nitrogen 8 Calcium Level 8.5 Carbon Dioxide Level 31 Chloride Level 102 Creatinine 0.39 L Glucose Level 84 Potassium Level 2.9 *L Sodium Level 144 Medications Medications Current Medications Paroxetine HCl 20 mg 20 mg DAILY PO Last administered on 11/20/16 09:51; Admin Dose 20 MG; Start 11/17/16 at 09:00 Sodium Chloride (NS) 1,000 ml @ 75 mls/hr [id number] IV Last administered on 09:52; Admin Dose 75 MLS/HR; Start 11/16/16 at 15:07 Acetaminophen (Tylenol Tab) 650 mg Q6H PRN PO PAIN LEVEL 1-3 OR FEVER Last administered on 11/20/16 05:09; Admin Dose 650 MG; Start 11/16/16 at 15:30 Acetaminophen (Tylenol Supp) 650 mg Q6H PRN [place] PAIN LEVEL 1-3 OR FEVER; Start 11/16/16 at 15:30 Acetaminophen/ Hydrocodone Bitart ([place] (5/325)) 1 tab Q6H PRN PO MODERATE PAIN LEVEL 4-6 Last administered on 11/18/16 19:12; Admin Dose 1 TAB; Start 11/16 at 15:30 Acetaminophen/ Hydrocodone Bitart ([place] (5/325)) 2 tab Q6H PRN PO SEVERE PAIN LEVEL 7-10 Last administered on 11/18/16 02:19; Admin Dose 2 TAB; Start 11/16/16 at 15:30 Morphine Sulfate (morphine) 2 mg Q4H PRN IV SEVERE PAIN LEVEL 7-10 Last administered on 11/17/16 19:51; Admin Dose 2 MG; Start 11/16/16 at 15:30 Hydromorphone HCl (Dilaudid) 0.5 mg Q4H PRN IV SEVERE PAIN LEVEL 7-10; Start at 15:30 Docusate Sodium (Colace) 100 mg Q12H PRN PO CONSTIPATION; Start 11/16/16 at 15: 30 Magnesium Hydroxide (Milk Of Mag) 30 ml DAILY PRN PO CONSTIPATION; Start at 15:30 Bisacodyl (Dulcolax Supp) 10 mg DAILY PRN [place] CONSTIPATION; Start 11/16/16 at 15: 30 Ondansetron HCl (Zofran Inj) 4 mg Q4H PRN IV NAUSEA AND/OR VOMITING Last administered on 11/18/16 16:13; Admin Dose 4 MG; Start 11/17/16 at 12:30 Amlodipine Besylate (Norvasc) 5 mg BID PO Last administered on 11/20/16 09:52; Admin Dose 5 MG; Start 11/19/16 at 21:00 Lisinopril (Zestril) 5 mg BID PO Last administered on 11/20/16 09:52; Admin Dose 5 MG; Start 11/19/16 at 11:30 Pantoprazole (Protonix Tab) 40 mg DAILY@06 PO Last administered on 11/20/16 05: 08; Admin Dose 40 MG; Start 11/20/16 at 06:00 SHAY KIM MD Nov 20, 2016 13:04
--- NOTE | 2016-11-20 14:12 | CONS ---
Date/Time of Note Date/Time of Note DATE: 11/20/16 TIME: 14:11 Assessment/Plan Assessment/Plan Additional Assessment/Plan [facility] INITIAL INPATIENT CONSULTATION NOTE ASSESSMENT AND PLAN: A very-pleasant 76-year-old lady with comorbidities of BMI 27.8, arthritis, hypertension, and previous appendectomy who presented to [facility] through the emergency room on 11/16/2016 with 1.5 cm area of tight stricture in the distal common bile duct without associated choledocholithiasis, elevated CA-19-9 to 80, and pancreatitis. On the plus site. Patient does not report significant changes in her appetite, no weight loss, no smoking history, and no family history of malignancy. Clinical picture is concerning for malignant process. To further delineate the clinical picture, we could perform further testing (see below), but I did explain to the patient and family that regardless of other test results, I am still sufficiently worried about this process and would recommend surgical intervention. I spent quite a bit of time with the patient and family describing our findings and my recommendations with the help of printed diagrams and answered all their questions to the best of my ability. Patient and her appeared to understand the above and agreed with the plans. With above assessment, I've recommended the followin. Pancreas protocol CT of abdomen and pelvis 2. May discharge home after above with no other medical issues 3. Consider outpatient endoscopic ultrasound evaluation. Wished by the patient and family 4. Follow-up with me in the office in 1-2 weeks to discuss above 5. Multidisciplinary tumor board presentation Thank you very much for having me involved in the care of this very pleasant lady and her wonderful family. I will continue to follow her along with you closely and will be available to answer any questions at area code [phone]. TOTAL VISIT TIME: 45 minutes of which more than half was spent in [id number] discussion with the patient, discussions with family, as well as coordination of care between multiple physicians and providers. Disclaimer: Inadvertent spelling and grammatical errors are likely due to EHR/ dictation software use and do not reflect on the quality of delivered patient care. Also, please note that the electronic time recorded on this node does not necessarily reflect the actual time of the visit. PLACE OF SERVICE: [facility], sixth floor DATE OF CONSULTATION: 11/20/2016 HISTORY OF PRESENT ILLNESS: The patient is a very pleasant 76-year-old lady with comorbidities of BMI 27.8, arthritis, hypertension, and previous appendectomy who presented to [facility] through the emergency room on 11/16/2016 with abdominal pain, nausea and vomiting, but no weight loss or change in appetite for the last few days. No prior episodes of similar symptoms. No prior issues with pancreatitis or choledocholithiasis or cholelithiasis. No prior liver or the other systemic issues. No significant family history. Workup showed dilated common bile duct as well as evidence for pancreatitis. ERCP done 11/17/2016 showed 1.5 cm area of stricture without associated choledocholithiasis. It should concerning for malignancy. I was kindly asked consult. Today, I had a chance to visit with the patient and do a complete H&P. I also gathered some of my information through a careful review of the available data. Patient does not report any hematemesis or blood in the stool or urine. Last bowel movement was yesterday as well as flatus. No reported chronic issues with constipation or diarrhea. No changes in hearing or vision, difficulty with breathing or swallowing, prior cardiopulmonary disease new skin rashes, joint pain, musculoskeletal disease, neurologic, psychiatric, or psychologic problems. At my visit, the patient did not have any significant pain complaints. PAST MEDICAL HISTORY 1. Arthritis 2. Hypertension 3. Status post childbirth 42 years ago PAST SURGICAL HISTORY 1. Appendectomy 2. ERCP 11/17/2016 ALLERGIES: NO KNOWN DRUG ALLERGIES MEDICATIONS 1. Cyclobenzaprine 10 mg p.o. t.i.d. 2. Amlodipine 10 mg p.o. daily. 3. Meloxicam 15 mg p.o. daily. 4. Naprosyn 500 mg p.o. b.i.d. 5. Fluoxetine 20 mg p.o. daily. 6. Boniva 150 mg p.o. SOCIAL HISTORY: The patient lives with family. - Tob; - ETOH; - IVDU FAMILY HISTORY: There are no significant medical, surgical or oncologic issues in the family as reported by the patient or reflected in the chart. REVIEW OF SYSTEMS: No pertinent positives or pertinent negatives in an otherwise complete 14 point review of systems. PHYSICAL EXAMINATION GENERAL: The patient appears to be a very pleasant young lady of /[place] descent lying in bed, appearing stated age, BMI 27.8 and otherwise in no acute distress. VITAL SIGNS: AVSS (please also see below) HEENT: Normocephalic and atraumatic. Extraocular muscles and hearing are grossly intact bilaterally and symmetrically. Sclerae are nonicteric. Oral cavity is clear; oral mucosa appear to be pink and moist. Dentition: fair. NECK: Supple. There is no lymphadenopathy or JVD. There is no submental, submandibular or supraclavicular lymphadenopathy. CHEST: Rises symmetrically with each breath; patient is breathing comfortably. There are no audible wheezes, rales or rhonchi on the gross exam. HEART: Pulse is regular and palpable on the right wrist. Capillary refill is normal. Carotid pulses are palpable bilaterally and symmetrically in the neck. EXTREMITIES: Lower extremities contain no pitting edema around the ankles bilaterally and symmetrically. ABDOMEN: Abdomen is soft, nontender and nondistended. No evidence of ascites, organomegaly, caput medusae, engorged subcutaneous veins, or other abnormalities. There are no peritoneal signs or guarding. SKIN: Appears to be pink and feels warm to touch. NEUROLOGIC: Awake, alert, and follows commands appropriately. LABORATORY DATA: See below IMAGING: See electronic chart. Please note that I've personally reviewed all pertinent available images and I agree in general with their overall reported findings. Consultation Date/Type/Reason Admit Date/Time Nov 16, 2016 at 14:57 Psychological: nl mood/affect Past Medical History Medical History: hypertension, other (Arthritis) Past Surgical History Past Surgical Hx: appendectomy Social History Alcohol Use: occasionally Smoking Status: Never smoker Exam/Review of Systems Vital Signs Vitals Vital Signs Date Time Temp Pulse Resp B/P Pulse Ox O2 Delivery O2 Flow Rate FiO2 11/20/16 08:27 98.4 86 22 162/73 92 11/19/16 20:17 Nasal Cannula 1.0 Intake and Output 11/19/16 11/19/16 11/20/16 15:00 23:00 07:00 Intake Total 1940 ml 1950 ml Output Total 1100 ml Balance 1940 ml 850 ml Results Result Diagram: 11/20/16 0424 11/20/16 0434 Results 24 hrs Laboratory Tests Test 11/20/16 04:24 11/20/16 04:34 Basophils # 0.0 Basophils % 0.4 Eosinophils # 0.0 Eosinophils % 0.5 Hematocrit 36.1 L Hemoglobin 12.5 Lipase 485 H Lymphocytes # 1.8 Lymphocytes % 21.1 Mean Corpuscular Hemoglobin 29.4 Mean Corpuscular Hemoglobin Concent 34.7 Mean Corpuscular Volume 84.8 Mean Platelet Volume 8.0 Monocytes # 0.5 Monocytes % 6.0 Neutrophils # 6.0 Neutrophils % 72.0 Nucleated Red Blood Cells # 0.0 Nucleated Red Blood Cells % 0.0 Platelet Count 239 Red Blood Count 4.26 Red Cell Distribution Width 13.6 White Blood Count 8.4 # Anion Gap 14 Blood Urea Nitrogen 8 Calcium Level 8.5 Carbon Dioxide Level 31 Chloride Level 102 Creatinine 0.39 L Glucose Level 84 Potassium Level 2.9 *L Sodium Level 144 Medications Medications Current Medications Paroxetine HCl 20 mg 20 mg DAILY PO Last administered on 11/20/16 09:51; Admin Dose 20 MG; Start 11/17/16 at 09:00 Sodium Chloride (NS) 1,000 ml @ 75 mls/hr [id number] IV Last administered on 09:52; Admin Dose 75 MLS/HR; Start 11/16/16 at 15:07 Acetaminophen (Tylenol Tab) 650 mg Q6H PRN PO PAIN LEVEL 1-3 OR FEVER Last administered on 11/20/16 05:09; Admin Dose 650 MG; Start 11/16/16 at 15:30 Acetaminophen (Tylenol Supp) 650 mg Q6H PRN [place] PAIN LEVEL 1-3 OR FEVER; Start 11/16/16 at 15:30 Acetaminophen/ Hydrocodone Bitart ([place] (5/325)) 1 tab Q6H PRN PO MODERATE PAIN LEVEL 4-6 Last administered on 11/18/16 19:12; Admin Dose 1 TAB; Start 11/16 at 15:30 Acetaminophen/ Hydrocodone Bitart ([place] (5/325)) 2 tab Q6H PRN PO SEVERE PAIN LEVEL 7-10 Last administered on 11/18/16 02:19; Admin Dose 2 TAB; Start 11/16/16 at 15:30 Morphine Sulfate (morphine) 2 mg Q4H PRN IV SEVERE PAIN LEVEL 7-10 Last administered on 11/17/16 19:51; Admin Dose 2 MG; Start 11/16/16 at 15:30 Hydromorphone HCl (Dilaudid) 0.5 mg Q4H PRN IV SEVERE PAIN LEVEL 7-10; Start at 15:30 Docusate Sodium (Colace) 100 mg Q12H PRN PO CONSTIPATION; Start 11/16/16 at 15: 30 Magnesium Hydroxide (Milk Of Mag) 30 ml DAILY PRN PO CONSTIPATION; Start at 15:30 Bisacodyl (Dulcolax Supp) 10 mg DAILY PRN [place] CONSTIPATION; Start 11/16/16 at 15: 30 Ondansetron HCl (Zofran Inj) 4 mg Q4H PRN IV NAUSEA AND/OR VOMITING Last administered on 11/18/16 16:13; Admin Dose 4 MG; Start 11/17/16 at 12:30 Amlodipine Besylate (Norvasc) 5 mg BID PO Last administered on 11/20/16 09:52; Admin Dose 5 MG; Start 11/19/16 at 21:00 Lisinopril (Zestril) 5 mg BID PO Last administered on 11/20/16 09:52; Admin Dose 5 MG; Start 11/19/16 at 11:30 Pantoprazole (Protonix Tab) 40 mg DAILY@06 PO Last administered on 11/20/16 05: 08; Admin Dose 40 MG; Start 11/20/16 at 06:00 CHINYERE ROE M.D. Nov 20, 2016 14:11
[2016-11-20 19:26] VITALS: BP 158/71; RESP 18
[2016-11-21] MEDS: SOD CHLORIDE 0.9% 1,000 ML IV SCH ×2 (01:40→02:45)
[2016-11-21 06:13] LABS: BASOPHILS % 0.4 % (0.0-2.0); EOSINOPHILS # 0.1 10^3/ul (0.0-0.5); EOSINOPHILS % 0.7 % (0.0-7.0); HEMATOCRIT 38.4 % (37.0-47.0); LYMPHOCYTES # 1.9 10^3/ul (0.8-2.9); LYMPHOCYTES % 24.4 % (15.0-51.0); MEAN CORPUSCULAR HEMOGLOBIN 28.9 pg (29.0-33.0); MEAN CORPUSCULAR VOLUME 85.2 fl (82.0-101.0); MEAN PLATELET VOLUME 7.8 fl (7.4-10.4); MONOCYTE # 0.5 10^3/ul (0.3-0.9); MONOCYTES % 6.4 % (0.0-11.0); NEUTROPHIL # 5.4 10^3/ul (1.6-7.5); NEUTROPHILS % 68.1 % (39.0-77.0); PLATELET COUNT 246 10^3/UL (140-440); RED CELL DISTRIBUTION WIDTH 13.3 % (11.5-14.5)
[2016-11-21 06:18] LABS: CONDITION 1
[2016-11-21 06:38] LABS: POTASSIUM 3.3 mmol/L (3.5-5.1)
[2016-11-21 06:40] LABS: CREATININE 0.4 mg/dl (0.44-1.00)
[2016-11-21 06:41] LABS: CALCIUM 8.7 mg/dl (8.4-10.2)
[2016-11-21 06:46] LABS: BILIRUBIN,INDIRECT 0.7 mg/dl (0-1.1); BILIRUBIN,TOTAL 0.7 mg/dl (0.2-1.3)
[2016-11-21] MEDS: PANTOPRAZOLE (EC) 40 MG TAB PO SCH (06:54)
[2016-11-21 07:44] VITALS: BP 161/72; RESP 22
[2016-11-21 07:45] VITALS: BP 161/72; RESP 22
[2016-11-21] MEDS: PAROXETINE 20 MG TAB PO SCH (08:53)
[2016-11-21] MEDS: LISINOPRIL 5 MG TAB PO SCH (08:54)
[2016-11-21] MEDS: AMLODIPINE 5 MG TAB PO SCH (08:54)
[2016-11-21] MEDS ORDERED: NS + KCL 20 MEQ 1,000 ML IV SCH (09:00)
--- NOTE | 2016-11-21 13:07 | CONS ---
Date/Time of Note Date/Time of Note DATE: 11/21/16 TIME: 13:07 Assessment/Plan Assessment/Plan Chief Complaint/Hosp Course Abdominal pain/nausea/vomiting WITH HIGH- GRADE CBD STENOSIS * MRCP * Mild hepatomegaly. * Fatty metamorphosis of the liver. * Dilated common bile duct with abrupt tapering distally. This may indicate a stricture which could be benign or malignant. * Borderline dilated pancreatic duct. * ERCP 16: * High grade 1.5 cm dilated CBD segment * Post [place] #10 7 cm stent placed * A-Ampula, biopsy: -- Small intestinal mucosa with normal villous architecture showing in significant histopathological abnormality. * B-Distal common bile duct, brushing: -- No malignant cells are identified The patient will likely require endoscopic ultrasonography to further determine the nature of the obstructive lesion in the distal common bile duct. OBTAIN HBI CONSULT- D/W DR LOTT, PT AND FAMILY Fatty liver * Recommend weight loss Transaminitis * Likely secondary to above hepatitis A serology- POSITIVE * Monitor LFTs Problems: Consultation Date/Type/Reason Admit Date/Time Nov 16, 2016 at 14:57 Type of Consultation: hemeon Exam/Review of Systems Vital Signs Vitals Vital Signs Date Time Temp Pulse Resp B/P Pulse Ox O2 Delivery O2 Flow Rate FiO2 11/21/16 07:45 99.0 82 22 161/72 94 11/19/16 20:17 Nasal Cannula 1.0 Intake and Output 11/20/16 11/20/16 11/21/16 15:00 23:00 07:00 Intake Total 250 ml 840 ml 1480 ml Output Total 400 ml Balance 250 ml 840 ml 1080 ml Results Result Diagram: 11/21/16 0504 11/21/16 0504 Results 24 hrs Laboratory Tests Test 11/21/16 05:04 Alanine Aminotransferase (ALT/SGPT) 51 Anion Gap 15 Aspartate Amino Transf (AST/SGOT) 22 Basophils # 0.0 Basophils % 0.4 Blood Morphology Comment Blood Urea Nitrogen 7 Calcium Level 8.7 Carbon Dioxide Level 27 Chloride Level 104 Creatinine 0.40 L Direct Bilirubin 0.00 Eosinophils # 0.1 Eosinophils % 0.7 Glucose Level 97 Hematocrit 38.4 Hemoglobin 13.0 Indirect Bilirubin 0.7 Lipase 585 H Lymphocytes # 1.9 Lymphocytes % 24.4 Mean Corpuscular Hemoglobin 28.9 L Mean Corpuscular Hemoglobin Concent 34.0 Mean Corpuscular Volume 85.2 Mean Platelet Volume 7.8 Monocytes # 0.5 Monocytes % 6.4 Neutrophils # 5.4 Neutrophils % 68.1 Nucleated Red Blood Cells # 0.0 Nucleated Red Blood Cells % 0.0 Platelet Count 246 Potassium Level 3.3 L Red Blood Count 4.50 Red Cell Distribution Width 13.3 Sodium Level 143 Total Bilirubin 0.7 White Blood Count 8.0 Medications Medications Current Medications Paroxetine HCl (Paxil) 20 mg DAILY PO Last administered on 11/21/16 08:53; Admin Dose 20 MG; Start 11/17/16 at 09:00 Acetaminophen (Tylenol Tab) 650 mg Q6H PRN PO PAIN LEVEL 1-3 OR FEVER Last administered on 11/20/16 05:09; Admin Dose 650 MG; Start 11/16/16 at 15:30 Acetaminophen (Tylenol Supp) 650 mg Q6H PRN [place] PAIN LEVEL 1-3 OR FEVER; Start 11/16/16 at 15:30 Acetaminophen/ Hydrocodone Bitart ([place] (5/325)) 1 tab Q6H PRN PO MODERATE PAIN LEVEL 4-6 Last administered on 11/18/16 19:12; Admin Dose 1 TAB; Start 11/16 at 15:30 Acetaminophen/ Hydrocodone Bitart ([place] (5/325)) 2 tab Q6H PRN PO SEVERE PAIN LEVEL 7-10 Last administered on 11/18/16 02:19; Admin Dose 2 TAB; Start 11/16/16 at 15:30 Morphine Sulfate (morphine) 2 mg Q4H PRN IV SEVERE PAIN LEVEL 7-10 Last administered on 11/17/16 19:51; Admin Dose 2 MG; Start 11/16/16 at 15:30 Hydromorphone HCl (Dilaudid) 0.5 mg Q4H PRN IV SEVERE PAIN LEVEL 7-10; Start at 15:30 Docusate Sodium (Colace) 100 mg Q12H PRN PO CONSTIPATION; Start 11/16/16 at 15: 30 Magnesium Hydroxide (Milk Of Mag) 30 ml DAILY PRN PO CONSTIPATION; Start at 15:30 Bisacodyl (Dulcolax Supp) 10 mg DAILY PRN [place] CONSTIPATION; Start 11/16/16 at 15: 30 Ondansetron HCl (Zofran Inj) 4 mg Q4H PRN IV NAUSEA AND/OR VOMITING Last administered on 11/18/16 16:13; Admin Dose 4 MG; Start 11/17/16 at 12:30 Amlodipine Besylate (Norvasc) 5 mg BID PO Last administered on 11/21/16 08:54; Admin Dose 5 MG; Start 11/19/16 at 21:00 Lisinopril (Zestril) 5 mg BID PO Last administered on 11/21/16 08:54; Admin Dose 5 MG; Start 11/19/16 at 11:30 Pantoprazole 40 mg 40 mg DAILY@06 PO Last administered on 11/21/16 06:54; Admin Dose 40 MG; Start 11/20/16 at 06:00 Potassium Chloride/Sodium Chloride (NS-KCl 20 Meq) 1,000 ml @ 75 mls/hr [id number] IV Last administered on 11/21/16 09:14; Admin Dose 75 MLS/HR; Start 11/21/16 at 09:00 SHAY KIM MD Nov 21, 2016 13:07
[2016-11-21] MEDS ORDERED: BARIUM SULFATE 0.1% 450 ML BTL (VOLUMEN) PO ONE ×2 (14:01)
--- NOTE | 2016-11-21 15:48 | DS ---
DATE OF ADMISSION: 11/16/2016 DATE OF DISCHARGE: 11/21/2016 CONSULTANTS: 1. Dr. Ant Gomes. 2. Dr. Rebecca Luna. 3. Dr. Demetris Aguilera. DISCHARGE DIAGNOSES 1. Pancreatitis. 2. Common bile duct dilation with noted stricture suspect for benign or malignancy. 3. Essential hypertension. 4. Diverticulosis without diverticulitis. 5. Arthritis. 6. Leukocytosis secondary to pancreatitis. 7. Elevated CA 19-9 with common bile duct brushing showing no malignant cells. HOSPITAL COURSE: This is a 76-year-old female with past medical history of osteoarthritis, sciatica , and hypertension, who came to [facility] secondary to abdominal pain for 1 day d uration. According to the patient, she was in her normal state of health when she started to have p ain roughly at 10:30 in the morning on the day of her admission on the right upper quadrant of her a bdomen. She also had some associated yellow emesis x3. She did come to [facility] for aforementioned issues. Upon further examination she did have a temperature of 101.2. She did also have blood work that showed her to have some leukocytosis with white count of 14.5. She did h ave elevated pancreatic enzymes and was noted with pancreatitis. She has also had some transaminiti s. She did have further radiographic imaging of the gallbladder and ultrasound that did show enlarg ed fatty liver, but otherwise unremarkable ultrasound. Her CT scan of the abdomen and pelvis, [facility], did show diffuse peripancreatic inflammatory edema suggestive of pancreatitis. The patient was noted with transaminitis and we did get further MRCP for delineation of cause of her transaminitis. It did show her to have a dilated common bile duct with abrupt tapering distally. There was seen a possible stricture, questionable for malignancy. Patient did undergo ERCP per patient admitting clerk a nd per pathology, it did show her to have no malignant cells identified, and small intestinal mucosa with normal villous architecture and significant histopathological abnormality. The patient did ramires ve also some tumor markers drawn, which did show her to have an elevated CA19-9. Due to the concer n of malignancy, we did get oncologist to follow. We also did get hepatobiliary surgical consult fo r this issue. Patient was optimized medically. She was continued on IV hydration and her lipase le vels did downtrend. She did report resolution of her abdominal pain. After consultation by hepatob iliary surgeon, patient was ordered pancreas protocol CT scan of the abdomen and pelvis, and she was instructed to follow up with hepatobiliary surgeon in 1 to 2 weeks. During her course of stay she did improve. She did report resolution of her abdominal pain. We did continue her on antihypertens rosalina for her hypertension. She was also continued on analgesics for her arthritis. Of note, the p atient did have a CT scan of abdomen and pelvis that did show diverticulosis without diverticulitis. The patient was asymptomatic and we did continue to monitor her for this. The patient was also in structed to follow up with oncologist and patient admitting clerk within a week for further monitoring an d care of her aforementioned issues. The plan of care was discussed with patient and patient did ve rbalize her understanding. On the day of discharge, the patient was in stable condition. Discharge physical exam and vital signs are stable. CONDITION: Stable. DISCHARGE PLAN 1. Patient to follow up with primary care provider within a week. 2. Patient to follow up with Dr. Rebecca Luna in a week. 3. Patient to follow with Dr. Demetris Aguilera in a week. 4. Patient to follow up with Dr. Ant Gomes in 1-2 weeks. DISCHARGE MEDICATIONS: 1. Amlodipine 5 mg p.o. b.i.d. 2. [place] 5/325 one tab p.o. q.6 hours as needed for pain. 3. Lisinopril 10 mg p.o. b.i.d. 4. Cyclobenzaprine 10 mg p.o. t.i.d. 5. ____ 150 mg p.o. once, 6. Mobic 15 mg p.o. every day. 7. Paroxetine 20 mg p.o. every day. DISCHARGE PROCESS TIME: 40 minutes. Discussed plan of care with Dr. Ashford. Dictated By: NEO FUENTES NP for JEANNIE HOLLINGSWORTH/SHAWN Conf#: [id number] DID#: [id number]
[2016-11-21] MEDS ORDERED: SOD CHLORIDE 0.9% 100 ML ONE (16:05)
[2016-11-21] MEDS ORDERED: IOHEXOL 300MG/ML 150 ML BTL ONE (16:05)
[2016-11-21] MEDS ORDERED: IOHEXOL 100 ML ONE (16:07)
[2016-11-21] MEDS ORDERED: IOHEXOL 350MG/ML 50 ML BTL ONE (16:07)
--- NOTE | 2016-11-21 20:46 | RADRPT ---
PROCEDURE: CT Abdomen and Pelvis with and without contrast CLINICAL INDICATION: Pain TECHNIQUE: Transaxial images were obtained through the abdomen on a multi-slice scanner prior to t he administration of contrast, and then following intravenous contrast administration (sagittal imag es were made through the abdomen at arterial phase and finally through the abdomen and pelvis at por vel venous phase. No oral contrast had previously been given. Sagittal and coronal re-formations wer e subsequently reconstructed. One or more of the following dose reduction techniques were used: - Automated exposure control. - Adjustment of the mA and/or kV according to patient size. - Use of iterative reconstruction technique. Radiation dose: CTDIvol = 34.6 mGy; DLP = 1664.24 mGy-cm. COMPARISON: To the noncontrast study done 11/16/2016. FINDINGS: Lung bases: Moderate gravitating bilateral pleural fluid accumulations are evident and there is subs egmental atelectasis involving the lower lobes more extensive on the right than the left. Liver: The liver is upper normal in size and appears fatty infiltrated. To 2 mm calcified granulomat a are seen in the right lobe and a 3 mm granulomas seen in the subcapsular left lobe. Gallbladder: The and 2 mm calcification is seen in the wall of the gallbladder and the wall appears thickened. No intraluminal stones are identified. Bile ducts: There is mild dilatation of the central intrahepatic bile ducts with pneumobilia. A erin iary stent is seen to be in place. The common bile duct is mildly dilated about the stent measuring approximately 7.2 mm. Pancreas: The pancreatic duct is dilated to about 3.4 mm in diameter. No pancreatic mass or inflamm ation is identified. Spleen: Normal in size with no focal lesion. Adrenals: Normal with no mass identified. Kidneys, ureters and bladder: There is a 2 mm hypodensity in the superior pole right kidney too smal l to accurately characterize but likely representing a cyst. A 4 mm cyst is seen at the inferior desiree e left kidney. The kidneys are otherwise unremarkable without hydronephrosis. The bladder appears normal. Reproductive organs: The uterus is midline. The endometrial cavity appears minimally thickened. No adnexal mass is evident. Stomach, bowel, and mesentery: There is diverticulosis of the colon most extensive in the sigmoid re gion but there is no evidence of bowel obstruction or inflammation. A 3.5 x 3.2 x 1.9 cm thin-walled structure with an air-fluid level is seen to lie to the right of the second portion the duodenum duenas spicious for duodenal diverticulum. The stomach appears unremarkable. Appendix: There are no findings to suggest appendicitis, but the vermiform appendix is not discretel y identified. Peritoneum: No free intraperitoneal fluid or air is identified. Aorta: Normal in caliber with no aneurysmal dilatation. Atherosclerotic vascular calcification is ev ident. IVC: Unremarkable. The left renal vein courses posterior to the aorta. Lymph nodes: No pathologically enlarged nodes are identified. Osseous structures: Mild diffuse degenerative spine changes are noted. IMPRESSION: 1. Since the previous noncontrast CT done 11/16/2016, a biliary stent has been placed. There is no w pneumobilia in addition to decreased but mild dilatation of the central intrahepatic bile ducts an d the common bile duct remains mildly dilated about the stent at approximately 7.2 mm. 2. The pancreatic duct is dilated to 3.4 mm but no pancreatic mass or inflammation is appreciable. An occult stone or lesion at the distal common bile duct cannot be excluded. 3. No radiopaque stone is seen within the lumen of the gallbladder but the gallbladder is less dist ended and the wall now appears somewhat thickened. 4. A 3.5 x 3.2 x 1.9 cm thin-walled structure with an air-fluid level is seen to lie to the right o f the second portion of the duodenum suspicious for a duodenal diverticulum. This was not clearly se en on the previous study. There are colonic diverticuli but no evidence of bowel obstruction or infl ammation, unchanged. 5. The liver is upper normal in size, fatty infiltrated, and a few small calcified granulomata are evident. 6. A 2 mm hypodensity is seen at the superior pole of the right kidney that likely represents a cys t. There is a 4 mm cyst at the inferior pole left kidney. There is no evidence of urinary outflow o bstruction. 7. Atherosclerotic vascular calcification is again noted. 8. Interval development of moderate gravitating bilateral pleural fluid accumulations and subsegmen vel atelectasis involving the lower lobes. Physician Yaneth Date Time Electronically viewed and signed by Simone Stweard Physician on 11/21/2016 20:46 RH/
== END 2016-11-21 17:15 | disposition home or self-care (01) | DRG 438 ==
LOC: E/R 12:11 → MS1 14:57 → MS2 11-20 07:50
PROVIDERS: ADMIT Family Medicine; ATTEND Family Medicine
PROC: 0FB98ZX Excision of Common Bile Duct, Via Natural or Artificial Opening Endoscopic, Diagnostic (ICD-10-PCS; 2016-11-17)
PROC: 0FBC8ZX Excision of Ampulla of Vater, Via Natural or Artificial Opening Endoscopic, Diagnostic (ICD-10-PCS; 2016-11-17)
PROC: 0F798DZ Dilation of Common Bile Duct with Intraluminal Device, Via Natural or Artificial Opening Endoscopic (ICD-10-PCS; principal; 2016-11-17 18:00)
DX: K85.90 Acute pancreatitis without necrosis or infection, unspecified (principal); K83.1 Obstruction of bile duct; K76.0 Fatty (change of) liver, not elsewhere classified; I10 Essential (primary) hypertension; K57.90 Diverticulosis of intestine, part unspecified, without perforation or abscess without bleeding; M19.90 Unspecified osteoarthritis, unspecified site; R97.8 Other abnormal tumor markers
CPT/HCPCS: 71010; 74176; 74178; 74181; 74330; 76705; 80048; 80053; 80061; 81003; 82150; 82247; 82248; 82378; 83036; 83605; 83690; 83735; 84100; 84436; 84443; 84450; 84460; 84479; 84484; 85025; 85610; 85730; 86301; 86708; 86803; 87040; 87086; 87340; 88104; 88305; 93005; C2617; C9113; J0330; J0696; J2270; J2405; J2765; J3010; J3480; J7030; Q9967